=== PATIENT | male | born 1930 | race Two or more races ===

== ENCOUNTER 2018-07-24 18:21 | Inpatient (IN) | payer OTHER ==
[~2018-07-24] VITALS: Ht 175.3 cm; Wt 58.7 kg
--- NOTE | 2018-07-24 20:00 | NUR ---
Amy RN notes PT arrived at the unit with a courtneyringris. PT came from [facility]. PT is alert and oriented X3. PT only speaks Bulgarian. PT's daughter named Juany helped with the translation. According to his daughter, PT felt a week ago and brought him to [facility] today 07/24/18 to get checked. Respiration is equal and unlabored. NO SOB. No pain or discomfort at this time. PT's calm and cooperative. IV sites is on left AC# 20, intact, patent and flush without resistance. VS is stable. Pictures of the skin/wound have been taken. Wound consult is ordered. Safety precautions is maintained. Bed at low position and call light is within reach. Will continue to monitor.
[2018-07-24 20:20] VITALS: BP 106/64
[2018-07-24] MEDS ORDERED: MAG HYDROX/AL HYDROX/SIMETH 30 ML UDC PO PRN (23:30)
[2018-07-24] MEDS ORDERED: MAGNESIUM HYDROXIDE 30 ML UDC PO PRN (23:30)
[2018-07-24] MEDS ORDERED: Z GUARD REMEDY 2 OZ OINT TP PRN (23:30)
[2018-07-24] MEDS ORDERED: ZOLPIDEM TARTRATE 5 MG TABLET PO PRN (23:30)
[2018-07-24] MEDS ORDERED: ACETAMINOPHEN 325 MG TABLET PO PRN (23:30)
[2018-07-24] MEDS ORDERED: ONDANSETRON HCL/PF 4 MG/2 ML VIAL IVP PRN (23:30)
--- NOTE | 2018-07-25 00:20 | NUR ---
RN [facility] notes DR. Alexandre came to see the pt. PT is awake and alert. No complains of pain or any discomfort. Will continue to monitor.
[2018-07-25] MEDS ORDERED: ENOXAPARIN SODIUM 40 MG/0.4 ML DISP.SYRIN SQ SCH (01:15)
[2018-07-25 06:34] LABS: BASOPHILS % (AUTO) 0.4 % (0.0-2.0); EOSINOPHILS % (AUTO) 0.7 % (0.0-6.0); HEMATOCRIT 40 % (39-51); HEMOGLOBIN 13.6 g/dL (13.5-17.5); LYMPHOCYTES # (AUTO) 0.6 /CMM (0.8-4.8); LYMPHOCYTES % (AUTO) 11.8 % (20.0-44.0); MEAN CORPUSCULAR HGB CONC 34 g/dl (31.0-36.0); MEAN CORPUSCULAR VOLUME 95 fL (80-96); MONOCYTES # (AUTO) 0.4 /CMM (0.1-1.30); MONOCYTES % (AUTO) 8.1 % (2.0-12.0); NEUTROPHILS # (AUTO) 4.2 /CMM (1.8-8.9); PLATELET COUNT (AUTO) 283 /CMM (150-450); RED BLOOD CELL COUNT(AUTO) 4.22 MIL/uL (4.5-6.0); WHITE BLOOD COUNT (AUTO) 5.3 K/uL (4.3-11.0)
[2018-07-25 07:03] LABS: CHOLESTEROL 98 mg/dL (<200); HDL CHOLESTEROL 54 mg/dL (40-60); LDL 41 mg/dL (0-99); THYROID STIMULATING HORMONE 1.225 uIU/mL (0.358-3.74); TRIGLYCERIDES 36 mg/dL (30-150)
--- NOTE | 2018-07-25 07:05 | NUR ---
RN medsurg closing notes PT is resting in bed comfortably with eyes closed. PT is alert and oriented X3, Georgian speaking only. Respiration is equal and unlabored. NO SOB. No c/o pain. IV is intact, patent and flush without resistance. Routine meds have been given and assisted all needs. Skin care provided and Z-guard and mepilex is applied in the sacrum area. Safety precautions is maintained. Bed at low position and call light is within reach. Will endorse to morning nurse for NEVIN.
[2018-07-25 07:26] LABS: CALCIUM, SERUM 8.2 mg/dL (8.5-10.1); CARBON DIOXIDE 27 mmol/L (21-32); CHLORIDE 98 mmol/L (98-107); CREATININE 0.9 mg/dL (0.6-1.3); GLUCOSE 84 mg/dL (74-106); MAGNESIUM 2.3 mg/dL (1.8-2.4); PHOSPHORUS 3.5 mg/dL (2.5-4.9); POTASSIUM 4.4 mmol/L (3.5-5.1); SODIUM SERUM 132 mmol/L (136-145); UREA NITROGEN, BLOOD 11 mg/dL (7-18)
[2018-07-25] MEDS ORDERED: TAMS-12 PO (07:42)
[2018-07-25] MEDS ORDERED: FINA5TAB11 PO (07:42)
[2018-07-25] MEDS ORDERED: FOLI-65 PO (07:42)
[2018-07-25] MEDS ORDERED: AMIO200T4 PO (07:42)
[2018-07-25] MEDS ORDERED: ACET325T53 PO (07:44)
[2018-07-25 08:00] VITALS: BP 151/82
--- NOTE | 2018-07-25 08:00 | NUR ---
MS RN OPENING NOTES Received Patient comfortable and asleep in bed. A/O x 3, Lithuanian speaking. VS stable with no acute distress. Breathing even and unlabored on room air with no respiratory distress. NPO orders in place. 20g PIV on LAC clean, dry, intact and flushing well. Safety precautions in place. Bed locked and set to lowest position with side rails x 2 up. Will continue to monitor.
[2018-07-25] MEDS: MULTIVITAMINS,THERAGRAN 1 UDTAB TABLET PO SCH (09:53)
[2018-07-25] MEDS: AMIODARONE HCL 200 MG TABLET PO SCH ×2 (10:00→17:00)
[2018-07-25] MEDS ORDERED: BACITRACIN 50000 UNITS/VIAL ONE (14:50)
[2018-07-25] MEDS ORDERED: BUPIVACAINE 0.5 % PF 150 MG/30 ML VIAL ONE (14:50)
[2018-07-25] MEDS ORDERED: DESFLURANE 240 ML BOTTLE IH ONE (14:50)
[2018-07-25] MEDS ORDERED: SEVOFLURANE 250 ML BOTTLE IH ONE (14:50)
--- NOTE | 2018-07-25 15:58 | NUR ---
MS RN NOTES Daughter at bedside. Patient taken to OR at this time.
[2018-07-25 16:02] LABS: BASOPHILS % (AUTO) 0.5 % (0.0-2.0); EOSINOPHILS % (AUTO) 0.4 % (0.0-6.0); HEMATOCRIT 38 % (39-51); HEMOGLOBIN 13.3 g/dL (13.5-17.5); LYMPHOCYTES # (AUTO) 0.5 /CMM (0.8-4.8); LYMPHOCYTES % (AUTO) 10.1 % (20.0-44.0); MEAN CORPUSCULAR HGB CONC 35 g/dl (31.0-36.0); MEAN CORPUSCULAR VOLUME 94 fL (80-96); MONOCYTES # (AUTO) 0.4 /CMM (0.1-1.30); MONOCYTES % (AUTO) 7.2 % (2.0-12.0); NEUTROPHILS # (AUTO) 4.2 /CMM (1.8-8.9); NEUTROPHILS % (AUTO) 81.8 % (43.0-81.0); PLATELET COUNT (AUTO) 292 /CMM (150-450); RED BLOOD CELL COUNT(AUTO) 4.07 MIL/uL (4.5-6.0); WHITE BLOOD COUNT (AUTO) 5.2 K/uL (4.3-11.0)
[2018-07-25] MEDS ORDERED: NITROGLYCERIN 0.4 MG/TAB BOTTLE ONE (16:51)
[2018-07-25] MEDS ORDERED: TRANEXAMIC ACID 1,000 MG in SODIUM CHLORIDE IRRIG SOLUTION 90 ML IR ONE (17:00)
--- NOTE | 2018-07-25 18:17 | NUR ---
MS RN NOTES Received Patient resting in bed. A/O x 3, Jamaican speaking. VS stable with no acute distress. Breathing even and unlabored on 2LPM via NC. Perez Cath in place and operational with clear yellow urine output noted. 20g PIV on LAC clean, dry, intact and flushing well. Will continue to monitor.
--- NOTE | 2018-07-25 19:00 | NUR ---
RN medsurg opening notes Received PT from morning nurse. PT just came back from right hip surgery at 1800 pm. PT is alert and oriented X3. PT only speaks Slovak. His Daughter Juany at the bed side with him and help with the translation. No pain or any discomfort at this time. IV is intact and patent. Dressing at surgery site is intact and dry. Bed at low position and call light is within reach. Keep monitoring the VS. Last VS at 1830 was 106/58 and pulse 68. Will continue to monitor.
--- NOTE | 2018-07-25 19:04 | NUR ---
MS RN CLOSING NOTES Patient resting in bed with daughter at bedside. A/O x 3, Salvadorean speaking. VS stable with no acute distress. Breathing even and unlabored on 2LPM via NC with no respiratory distress. 20g PIV on LAC clean, dry, intact and flushing well. Perez Cath in place and operational with clear yellow urine noted. RIGHT HIP dressing clean, dry, and intact. Safety precautions in place. Bed locked and set to lowest position with side rails x 2 up. Will endorse plan of care to oncoming shift.
[2018-07-25 20:00] VITALS: BP 101/57
--- NOTE | 2018-07-25 20:00 | NUR ---
RN medsurg notes PT is complaining of pain on right hip 3/10 on pain scale. Administered PRN med Acetaminophen 650mg. VS is stable. Will continue to monitor.
--- NOTE | 2018-07-25 20:00 | NUR ---
RN medsur notes PT is resting in bed comfortably with eyes closed. No c/o pain or discomfort. His daughter Juany at the bed side. BP 101/57, Pulse 62, Respiration is 20, Temp 97.3 F, O2 sat 97% on 3 L NC. Will continue to monitor.
--- NOTE | 2018-07-25 21:17 | NUR ---
Met with patient and daughter Juany at bedside. Patient speaks Icelandic only. He lives at home with family in [facility]. Prior to hospitalization he was ambulating with a walker. Has big family that provides assistance with adl's as needed. Patient receives 78hrs/month of IHSS. He had surgery right hip hemiarthroplasty done today. His pcp is Dr. Derrick Boles in [place]. Discussed dc planning options including SNF short term. Daughter does not want SNF placement. Family prefer to take patient home with homehealth PT when discharge. Addendum: 07/25/18 at 2121 by AURELIANO PERALES RN Amended: Links added.
--- NOTE | 2018-07-25 21:21 | NUR ---
Met with patient and daughter Juany at bedside. Patient speaks [place] Citizen only. He lives at home with family in [facility]. Prior to hospitalization he was ambulating with a walker. Has big family that provides assistance with adl's as needed. Patient receives 78hrs/month of IHSS. He owns a wheelchair, walker and shower chair.His pcp is Dr. Derrick Boles in [place]. Had surgery right hip hemiarthroplasty done today.Discussed dc planning options including SNF short term. Daughter does not want SNF placement. Family prefer to take patient home with homehealth PT when discharge. Addendum: 07/25/18 at 2121 by AURELIANO PERALES RN Amended: Links added.
--- NOTE | 2018-07-25 22:00 | NUR ---
RN medsurg notes PT's BP 123/54, Pulse 69, Respiration is 18. No pain or any discomfort. Pt's daughter at the bed side. Will continue to monitor.
[2018-07-25] MEDS: TAMSULOSIN 0.4 MG CAP.SR.24H PO SCH (22:10)
[2018-07-25] MEDS: FINASTERIDE (5 MG) 5 MG TABLET PO SCH (22:10)
[2018-07-25] MEDS: ANCEF 1 GM/50 ML D5W IV SCH ×2 (23:05)
--- NOTE | 2018-07-25 23:59 | NUR ---
RN medsurg notes PT is resting in bed comfortably. Arouse easily. PT's daughter at the bed side. No C/O pain. No nausea or vomiting. BP 100/59, Pulse 70, O2 sat 95% on room air, Respiration is 18, Temp 98.9 F. Will continue to monitor.
--- NOTE | 2018-07-26 06:30 | NUR ---
RN medsurg closing notes PT is resting in bed comfortably with eyes closed. PT is alert and oriented X3, Puerto Rican speaking only. Respiration is equal and unlabored. NO SOB. No c/o pain or any discomfort. IV is intact, patent and flush without resistance. Routine meds have been given and assisted all needs. Safety precautions is maintained. Bed at low position and call light is within reach. Will endorse to morning nurse for NEVIN.
[2018-07-26 06:47] LABS: BASOPHILS % (AUTO) 0.1 % (0.0-2.0); EOSINOPHILS % (AUTO) 0.1 % (0.0-6.0); HEMATOCRIT 33 % (39-51); HEMOGLOBIN 11.8 g/dL (13.5-17.5); LYMPHOCYTES # (AUTO) 0.4 /CMM (0.8-4.8); LYMPHOCYTES % (AUTO) 4.5 % (20.0-44.0); MEAN CORPUSCULAR HGB CONC 36 g/dl (31.0-36.0); MEAN CORPUSCULAR VOLUME 94 fL (80-96); MONOCYTES # (AUTO) 0.5 /CMM (0.1-1.30); MONOCYTES % (AUTO) 5.9 % (2.0-12.0); NEUTROPHILS # (AUTO) 7.9 /CMM (1.8-8.9); NEUTROPHILS % (AUTO) 89.4 % (43.0-81.0); PLATELET COUNT (AUTO) 248 /CMM (150-450); RED BLOOD CELL COUNT(AUTO) 3.52 MIL/uL (4.5-6.0); WHITE BLOOD COUNT (AUTO) 8.8 K/uL (4.3-11.0)
--- NOTE | 2018-07-26 07:00 | NUR ---
RN medsurg closing notes
[2018-07-26 07:08] LABS: CALCIUM, SERUM 7.5 mg/dL (8.5-10.1); CARBON DIOXIDE 24 mmol/L (21-32); CHLORIDE 101 mmol/L (98-107); CREATININE 0.9 mg/dL (0.6-1.3); GLUCOSE 93 mg/dL (74-106); SODIUM SERUM 134 mmol/L (136-145); UREA NITROGEN, BLOOD 15 mg/dL (7-18)
--- NOTE | 2018-07-26 07:39 | NUR ---
MS/RN OPENING NOTE PATIENT IN BED IN STABLE CONDITION. A/O X 2-3 WITH EPISODES OF FORGETFULNESS, MALAGASY SPEAKING. NO SIGNS OF ACUTE DISTRESS. NO COMPLAIN OF PAIN OR DISCOMFORT. ALL NEEDS ATTENDED TO. CALL LIGHT WITHIN REACH. WILL CONTINUE TO MONITOR TO ENSURE SAFETY.
[2018-07-26 08:00] VITALS: BP 119/67
[2018-07-26] MEDS: ANCEF 1 GM/50 ML D5W IV SCH ×4 (08:22→15:16)
[2018-07-26] MEDS: MULTIVITAMINS,THERAGRAN 1 UDTAB TABLET PO SCH (08:22)
[2018-07-26] MEDS: AMIODARONE HCL 200 MG TABLET PO SCH ×2 (08:22→16:39)
[2018-07-26] MEDS: HYDROCODONE/APAP 5/325MG 1 EACH TABLET PO PRN ×2 (09:40→21:34)
--- NOTE | 2018-07-26 11:41 | NUR ---
WOUND CARE CONSULT: PT PRESENTS WITH RT HIP SURGICAL DRESSING, ORTHO IMMOBILIZER ON RT LOWER EXTREMITY, DRY SCAB TO RT ELBOW AND VERY BONY SACRAL AREA, PRESENT ON ADMISSION. JOSE DANIEL IBRAHIM NOTED. RECOMMENDATIONS MADE FOR SKIN PROTECTION. DISCUSSED WITH NURSING STAFF. WILL SEE PRN. ARAUJO IN AGREEMENT WITH PLAN OF CARE. CURRENT BONG SCORE IS 14. Addendum: 07/26/18 at 1143 by ANNY VELASQUEZ WNDNU Amended: Links added.
[2018-07-26 16:00] VITALS: BP 116/70
--- NOTE | 2018-07-26 18:26 | NUR ---
MS/RN CLOSING NOTE PATIENT IN BED IN STABLE CONDITION. A/O X 2 WITH EPISODES OF FORGETFULNESS, TELUGU SPEAKING. NO SIGNS OF ACUTE DISTRESS. NO COMPLAIN OF PAIN OR DISCOMFORT. ALL NEEDS ATTENDED TO. CALL LIGHT WITHIN REACH. WILL ENDORSE TO NEXT SHIFT FOR CONTINUITY OF CARE.
--- NOTE | 2018-07-26 19:15 | NUR ---
RN OPEN NOTES RECEIVED PATIENT AWAKE IN BED. A/O X2, WITH PERIODS CONFUSION AND FORGETFULNESS. NO SIGNS OF DISTRESS OR DISCOMFORT. BREATHING EVEN AND UNLABORED. IV ACCESS IN LAC, PATENT AND INTACT, NO SIGNS OF REDNESS OR INFILTRATION. DRESSING ON R HIP C/D/I. KNEE IMMOBILIZER AND ABDUCTION PILLOW IN PLACE. HAS F/C INTACT DRAINING CLEAR CRISTIN FLUID. BED IN LOW LOCKED POSITION WITH SIDE RAILS X3. CALL LIGHT WITHIN REACH. WILL CONTINUE TO MONITOR.
[2018-07-26 20:00] VITALS: BP 126/62
[2018-07-26] MEDS: FINASTERIDE (5 MG) 5 MG TABLET PO SCH (21:33)
[2018-07-26] MEDS: TAMSULOSIN 0.4 MG CAP.SR.24H PO SCH (21:33)
[2018-07-26] MEDS: ENOXAPARIN SODIUM 40 MG/0.4 ML DISP.SYRIN SQ SCH (21:35)
[2018-07-27 06:13] LABS: BASOPHILS % (AUTO) 0.1 % (0.0-2.0); EOSINOPHILS % (AUTO) 0.1 % (0.0-6.0); HEMATOCRIT 32 % (39-51); HEMOGLOBIN 11.2 g/dL (13.5-17.5); LYMPHOCYTES # (AUTO) 0.6 /CMM (0.8-4.8); LYMPHOCYTES % (AUTO) 6.4 % (20.0-44.0); MEAN CORPUSCULAR HGB CONC 35 g/dl (31.0-36.0); MEAN CORPUSCULAR VOLUME 95 fL (80-96); MONOCYTES # (AUTO) 0.6 /CMM (0.1-1.30); MONOCYTES % (AUTO) 6.3 % (2.0-12.0); NEUTROPHILS % (AUTO) 87.1 % (43.0-81.0); PLATELET COUNT (AUTO) 203 /CMM (150-450); RED BLOOD CELL COUNT(AUTO) 3.37 MIL/uL (4.5-6.0); WHITE BLOOD COUNT (AUTO) 9.2 K/uL (4.3-11.0)
[2018-07-27 06:27] LABS: CALCIUM, SERUM 7.8 mg/dL (8.5-10.1); CARBON DIOXIDE 26 mmol/L (21-32); CHLORIDE 101 mmol/L (98-107); CREATININE 0.8 mg/dL (0.6-1.3); GLUCOSE 108 mg/dL (74-106); MAGNESIUM 2.1 mg/dL (1.8-2.4); PHOSPHORUS 2.7 mg/dL (2.5-4.9); POTASSIUM 3.9 mmol/L (3.5-5.1); SODIUM SERUM 134 mmol/L (136-145); UREA NITROGEN, BLOOD 15 mg/dL (7-18)
--- NOTE | 2018-07-27 06:40 | NUR ---
RN CLOSING NOTES PATIENT RESTING IN BED, EASILY AROUSABLE. A/O X2, WITH PERIODS CONFUSION AND FORGETFULNESS THROUGHOUT SHIFT. NO SIGNS OF DISTRESS OR DISCOMFORT. BREATHING EVEN AND UNLABORED. IV ACCESS IN LAC, PATENT AND INTACT, NO SIGNS OF REDNESS OR INFILTRATION. DRESSING ON R HIP C/D/I. KNEE IMMOBILIZER AND ABDUCTION PILLOW IN PLACE. HAS F/C INTACT DRAINING CLEAR CRISTIN FLUID. ALL NEEDS MET. NO SIGNIFCANT CHANGES THROUGH THE NIGHT. PATIENT REPOSITIONED Q2H AND PRN. BED IN LOW LOCKED POSITION WITH SIDE RAILS X3. CALL LIGHT WITHIN REACH. WILL ENDORSE TO AM SHIFT FOR NEVIN.
--- NOTE | 2018-07-27 07:15 | NUR ---
MS RN Opening Note Patient currently resting in bed Semi-Fowlers position, no acute distress noted. Easily arousable. Alert and oriented x2, Malaysian speaking. Respirations even and unlabored on room air. Perez catheter in place, patent, intact and draining clear, brad urine. Dressing noted to the right hip, clean, dry and intact. Immobilzer in place to right leg; abduction pillow in place. Peripheral IV access to the left AC 20 gauge, intact, patent and saline locked. Safety and fall precautions in place: bed in lowest and locked position, side rails up x2, bed alarm on, call light and personal possessions in reach, room well lit, floor clutter-free. Patient currently clean, dry and comfortable. Will continue to monitor and intervene as needed.
[2018-07-27 08:00] VITALS: BP 157/83
[2018-07-27] MEDS: AMIODARONE HCL 200 MG TABLET PO SCH ×2 (08:54→17:12)
[2018-07-27] MEDS: MULTIVITAMINS,THERAGRAN 1 UDTAB TABLET PO SCH (08:54)
[2018-07-27] MEDS: HYDROCODONE/APAP 5/325MG 1 EACH TABLET PO PRN ×2 (10:29→22:53)
--- NOTE | 2018-07-27 11:30 | NUR ---
MS RN NOTES PT SEEN BY Andrea DARNELL A. DRESSING CHANGE DONE TODAY. PT TOLERATED WELL. NO signs or symptoms OF INFECTION present. Medication given as needed for pain. Repositioned per protocol and as tolerated. WILL CONTINUE TO MONITOR.
[2018-07-27 16:00] VITALS: BP 144/71
--- NOTE | 2018-07-27 18:30 | NUR ---
MS RN Closing Note Patient currently resting in bed Semi-Fowlers position, no acute distress noted. Easily arousable. Alert and oriented x2, Cuban speaking. Respirations even and unlabored on room air. Perez catheter in place, patent, intact and draining clear, brad urine. Dressing noted to the right hip, clean, dry and intact. Immobilizer in place to right leg; abduction pillow in place. Peripheral IV access to the left AC 20 gauge, intact, patent and saline locked. Safety and fall precautions in place: bed in lowest and locked position, side rails up x2, bed alarm on, call light and personal possessions in reach, room well lit, floor clutter-free. Patient currently clean, dry and comfortable. Gave update to daughter via telephone, Juany this shift. All needs attended to. Will endorse to steward/stewardess night RN for continuity of care.
--- NOTE | 2018-07-27 19:35 | NUR ---
RN NOTES RECEIVED PATIENT AWAKE IN BED, CONFUSE, CAMBODIAN SPEAKING,SPEAKING IN A LOUD MANNER. ON SEMI FOWLERS POSITION, BREATHING EVEN AND UNLABORED, SAFETY MEASURES IN PLACE, ASPIRATION PRECAUTION EMPHASIZED, BED IN LOW LOCKED POSITION, CALL LIGHT WITHIN EASY REACH, IV ACCESS INTACT AND PATENT, ALL NEEDS, KSY CATH DRAINING TO A YELLOW TO CRISTIN IN COLOR, REPOSITIONED FOR COMFORT, WILL MONITOR ACCORDINGLY.
[2018-07-27 20:00] VITALS: BP 133/81
[2018-07-27] MEDS: TAMSULOSIN 0.4 MG CAP.SR.24H PO SCH (21:31)
[2018-07-27] MEDS: FINASTERIDE (5 MG) 5 MG TABLET PO SCH (21:31)
[2018-07-27] MEDS: ENOXAPARIN SODIUM 40 MG/0.4 ML DISP.SYRIN SQ SCH (21:32)
[2018-07-28 06:22] LABS: BASOPHILS % (AUTO) 0.2 % (0.0-2.0); EOSINOPHILS % (AUTO) 0.5 % (0.0-6.0); HEMATOCRIT 29 % (39-51); HEMOGLOBIN 10.3 g/dL (13.5-17.5); LYMPHOCYTES # (AUTO) 0.6 /CMM (0.8-4.8); LYMPHOCYTES % (AUTO) 8.8 % (20.0-44.0); MEAN CORPUSCULAR HGB CONC 35 g/dl (31.0-36.0); MEAN CORPUSCULAR VOLUME 95 fL (80-96); MONOCYTES # (AUTO) 0.4 /CMM (0.1-1.30); MONOCYTES % (AUTO) 6.1 % (2.0-12.0); NEUTROPHILS # (AUTO) 5.5 /CMM (1.8-8.9); NEUTROPHILS % (AUTO) 84.4 % (43.0-81.0); PLATELET COUNT (AUTO) 180 /CMM (150-450); RED BLOOD CELL COUNT(AUTO) 3.11 MIL/uL (4.5-6.0); WHITE BLOOD COUNT (AUTO) 6.5 K/uL (4.3-11.0)
[2018-07-28 06:29] LABS: CALCIUM, SERUM 7.4 mg/dL (8.5-10.1); CARBON DIOXIDE 28 mmol/L (21-32); CHLORIDE 101 mmol/L (98-107); CREATININE 0.7 mg/dL (0.6-1.3); GLUCOSE 93 mg/dL (74-106); POTASSIUM 3.5 mmol/L (3.5-5.1); SODIUM SERUM 134 mmol/L (136-145); UREA NITROGEN, BLOOD 12 mg/dL (7-18)
--- NOTE | 2018-07-28 07:24 | NUR ---
RN NOTES PATIENT AWAKE IN BED, ABLE TO REST AND SLEEP AT INTERVALS, BREATHING EVEN AND UNLABORED, SAFETY MEASURES IN PLACE, ASPIRATION PRECAUTION EMPHASIZED, BED IN LOW LOCKED POSITION, CALL LIGHT WITHIN EASY REACH, IV ACCESS INTACT AND PATENT, ALL NEEDS, SKY CATH DRAINING TO A YELLOW TO CRISTIN IN COLOR, REPOSITIONED FOR COMFORT, WILL ENDORSE TO AM NURSE FOR CONTINUITY OF CARE.
--- NOTE | 2018-07-28 07:45 | NUR ---
M/S RN NOTES PATIENT AWAKE IN BED, ALERT AND ORIENTED X2, LUXEMBOURGISH SPEAKING. PATIENT IN NO RESPIRATORY DISTRESS, DENIES ANY PAIN AT THIS TIME. SKIN WARM TO TOUCH. IV SL ON THE LAC #20G, INTACT AND PATENT. BED ON LOWEST LOCKED POSITION, CALL LIGHT WITHIN REACH. WILL CONTINUE TO MONITOR.
[2018-07-28 08:00] VITALS: BP 121/68
[2018-07-28] MEDS: MULTIVITAMINS,THERAGRAN 1 UDTAB TABLET PO SCH (08:19)
[2018-07-28] MEDS: AMIODARONE HCL 200 MG TABLET PO SCH ×2 (08:20→17:14)
[2018-07-28] MEDS: HYDROCODONE/APAP 5/325MG 1 EACH TABLET PO PRN ×2 (10:40→17:14)
[2018-07-28 16:00] VITALS: BP 118/65
--- NOTE | 2018-07-28 17:58 | NUR ---
M/S RN NOTES PATIENT LYING IN BED RESTING, NO RESPIRATORY DISTRESS NOTED, DENIES PAIN AT THIS TIME. SKIN WARM TO TOUCH, KNEE IMMOBILIZER IN PLACE AND ABDUCTION PILLOW IN BETWEEN LEGS. BED ON LOWEST LOCKED POSITION, CALL LIGHT WITHIN REACH. WILL ENDORSE TO ONCOMING NURSE.
--- NOTE | 2018-07-28 19:45 | NUR ---
RN NOTES RECEIVED PATIENT AWAKE IN BED, CONFUSE, PITCAIRN ISLANDER SPEAKING,SPEAKING IN A LOUD MANNER. ON SEMI FOWLERS POSITION, BREATHING EVEN AND UNLABORED, SAFETY MEASURES IN PLACE, ASPIRATION PRECAUTION EMPHASIZED, BED IN LOW LOCKED POSITION, CALL LIGHT WITHIN EASY REACH, IV ACCESS INTACT AND PATENT, ALL NEEDS, SKY CATH DRAINING TO A YELLOW TO CRISTIN IN COLOR, REPOSITIONED FOR COMFORT, WILL MONITOR ACCORDINGLY.
[2018-07-28 20:00] VITALS: BP_SYST 135; BP_SYST 136; BP_DIAS 66
[2018-07-28] MEDS: TAMSULOSIN 0.4 MG CAP.SR.24H PO SCH (21:25)
[2018-07-28] MEDS: FINASTERIDE (5 MG) 5 MG TABLET PO SCH (21:25)
[2018-07-28] MEDS: ENOXAPARIN SODIUM 40 MG/0.4 ML DISP.SYRIN SQ SCH (21:27)
[2018-07-29] MEDS: HYDROCODONE/APAP 5/325MG 1 EACH TABLET PO PRN ×2 (01:11→20:50)
[2018-07-29 06:34] LABS: BASOPHILS % (AUTO) 0.2 % (0.0-2.0); EOSINOPHILS % (AUTO) 0.8 % (0.0-6.0); HEMATOCRIT 28 % (39-51); HEMOGLOBIN 9.7 g/dL (13.5-17.5); LYMPHOCYTES # (AUTO) 0.6 /CMM (0.8-4.8); LYMPHOCYTES % (AUTO) 10.9 % (20.0-44.0); MEAN CORPUSCULAR HGB CONC 34 g/dl (31.0-36.0); MEAN CORPUSCULAR VOLUME 96 fL (80-96); MONOCYTES # (AUTO) 0.3 /CMM (0.1-1.30); MONOCYTES % (AUTO) 5.9 % (2.0-12.0); NEUTROPHILS # (AUTO) 4.3 /CMM (1.8-8.9); NEUTROPHILS % (AUTO) 82.2 % (43.0-81.0); PLATELET COUNT (AUTO) 176 /CMM (150-450); RED BLOOD CELL COUNT(AUTO) 2.95 MIL/uL (4.5-6.0); WHITE BLOOD COUNT (AUTO) 5.2 K/uL (4.3-11.0)
[2018-07-29 06:52] LABS: CALCIUM, SERUM 7.4 mg/dL (8.5-10.1); CARBON DIOXIDE 29 mmol/L (21-32); CHLORIDE 101 mmol/L (98-107); CREATININE 0.7 mg/dL (0.6-1.3); GLUCOSE 124 mg/dL (74-106); MAGNESIUM 1.9 mg/dL (1.8-2.4); PHOSPHORUS 2.8 mg/dL (2.5-4.9); POTASSIUM 3.5 mmol/L (3.5-5.1); SODIUM SERUM 135 mmol/L (136-145); UREA NITROGEN, BLOOD 13 mg/dL (7-18)
--- NOTE | 2018-07-29 07:30 | NUR ---
RN NOTES ALL NEEDS ATTENDED, ABLE TO REST AND SLEEP AT INTERVALS, KEPT CLEAN DRY AND COMFORTABLE. ENDORSE TO AM NURSE FOR CONTINUITY OF CARE.
[2018-07-29 08:00] VITALS: BP 115/60
--- NOTE | 2018-07-29 08:00 | NUR ---
m/s network diagnostic support specialist: initial assessment received pt in bed awake, alert to self only with confusion and disorientation to time, place, and situation. s/p right hip hemiarthroplasty. dressing to right hip intact. voiced no discomfort. reality orientation provided prn. will continue to monitor.
[2018-07-29] MEDS: MULTIVITAMINS,THERAGRAN 1 UDTAB TABLET PO SCH (08:26)
[2018-07-29] MEDS: AMIODARONE HCL 200 MG TABLET PO SCH ×2 (08:26→16:54)
--- NOTE | 2018-07-29 10:00 | NUR ---
m/s quarter doper: ortho f/u analisa martin) here and cleared pt for discharge under orthopedic standpoint. awaiting placement.
--- NOTE | 2018-07-29 12:00 | NUR ---
m/s nurse gynecology: notes turned and repositioned. kept comfortable. no distress noted. lunch served. hob elevated.
--- NOTE | 2018-07-29 14:00 | NUR ---
m/s patient access associate: notes turned and repositioned. abduction pillow remains in place. dressing to right hip intact. no bleeding noted. voiced no discomfort. will continue to monitor.
[2018-07-29 16:00] VITALS: BP 128/72
--- NOTE | 2018-07-29 16:00 | NUR ---
m/s medical nurse: notes turned and repositioned. kept comfortable. abduction pillow in place. hip precaution maintained. will continue to monitor.
--- NOTE | 2018-07-29 18:00 | NUR ---
m/s telecommunications specialist: notes family visiting at this time. pt resting comfortable in bed. will monitor.
--- NOTE | 2018-07-29 18:45 | NUR ---
m/s occupational health physician: notes in bed awake with family at bedside. needs attended. no distress noted. will continue to monitor.
--- NOTE | 2018-07-29 19:30 | NUR ---
RECEIVED PATIENT AWAKE IN BED. AO X 1, ABLE TO MAKE NEEDS KNOWN. NO ACUTE DISTRESS NOTED. DENIES ANY PAIN AT THIS TIME. IV SITE PATENT, INTACT; FLUSHED. SKY CATH PATENT, INTACT; DRAINING CLEAR YELLOW URINE. SAFETY REMINDERS GIVEN. ON LOW BED WITH BILATERAL UPPER SIDE RAILS UP. CALL HURT WITHIN EASY REACH. WILL CONTINUE TO MONITOR. FAMILY AT BEDSIDE.
[2018-07-29 20:00] VITALS: BP 107/63
[2018-07-29] MEDS: ENOXAPARIN SODIUM 40 MG/0.4 ML DISP.SYRIN SQ SCH (20:50)
[2018-07-29] MEDS: TAMSULOSIN 0.4 MG CAP.SR.24H PO SCH (21:01)
[2018-07-29] MEDS: FINASTERIDE (5 MG) 5 MG TABLET PO SCH (21:01)
--- NOTE | 2018-07-30 06:12 | NUR ---
PATIENT ASLEEP, EASILY AROUSABLE. RESPIRATIONS EVEN. NO SIGNS OF PAIN NOTED. DUE MEDS GIVEN WITH NO ASE NOTED. ABDUCTOR PILLOW IN PLACE. NEEDS ATTENDED. KEPT CLEAN AND DRY. SAFETY PRECAUTIONS AND COMFORT MEASURES IN PLACE. WILL GIVE REPORT TO DAY SHIFT FOR CONTINUITY OF CARE.
[2018-07-30 07:20] LABS: BASOPHILS % (AUTO) 0.3 % (0.0-2.0); EOSINOPHILS % (AUTO) 0.9 % (0.0-6.0); HEMATOCRIT 29 % (39-51); HEMOGLOBIN 10.2 g/dL (13.5-17.5); LYMPHOCYTES # (AUTO) 0.6 /CMM (0.8-4.8); LYMPHOCYTES % (AUTO) 10.4 % (20.0-44.0); MEAN CORPUSCULAR HGB CONC 35 g/dl (31.0-36.0); MEAN CORPUSCULAR VOLUME 94 fL (80-96); MONOCYTES # (AUTO) 0.3 /CMM (0.1-1.30); MONOCYTES % (AUTO) 5.6 % (2.0-12.0); NEUTROPHILS # (AUTO) 4.5 /CMM (1.8-8.9); NEUTROPHILS % (AUTO) 82.8 % (43.0-81.0); PLATELET COUNT (AUTO) 204 /CMM (150-450); RED BLOOD CELL COUNT(AUTO) 3.08 MIL/uL (4.5-6.0); WHITE BLOOD COUNT (AUTO) 5.5 K/uL (4.3-11.0)
[2018-07-30 07:23] LABS: CALCIUM, SERUM 8.1 mg/dL (8.5-10.1); CARBON DIOXIDE 27 mmol/L (21-32); CHLORIDE 99 mmol/L (98-107); CREATININE 0.7 mg/dL (0.6-1.3); GLUCOSE 111 mg/dL (74-106); POTASSIUM 3.8 mmol/L (3.5-5.1); SODIUM SERUM 135 mmol/L (136-145); UREA NITROGEN, BLOOD 11 mg/dL (7-18)
[2018-07-30 08:00] VITALS: BP 123/68
--- NOTE | 2018-07-30 08:00 | NUR ---
m/s last puller: initial assessment received pt in bed awake, alert to self only with confusion and disorientation to time, place, and situation. s/p right hip hemiarthroplasty. jatinder intact with dressing to right hip intact. voiced no discomfort. reality orientation provided prn. will continue to monitor.
[2018-07-30] MEDS: MULTIVITAMINS,THERAGRAN 1 UDTAB TABLET PO SCH (08:51)
[2018-07-30] MEDS: AMIODARONE HCL 200 MG TABLET PO SCH ×2 (08:55→17:31)
--- NOTE | 2018-07-30 09:00 | NUR ---
m/s lookback coordinator: md visit seen by shelby (acnp) at this time. still awaiting for placement.
--- NOTE | 2018-07-30 09:15 | NUR ---
m/s manager strategic alliances: notes valentine (daughter) visiting and wants to be called re: placement close to [facility]. message left to curt (case management).
--- NOTE | 2018-07-30 10:00 | NUR ---
m/s personnel arbitrator: notes curt (case management) to f/u with family re: placement as stated. will continue to monitor.
--- NOTE | 2018-07-30 11:00 | NUR ---
m/s fig caprifier: notes rn instructor completed med surg flow sheet assessment.
--- NOTE | 2018-07-30 12:00 | NUR ---
m/s sailing instructor: notes resting comfortable with no distress noted. will continue to monitor.
--- NOTE | 2018-07-30 14:00 | NUR ---
m/s architect naval: notes turned and repositioned. abduction pillow remains in place. dressing to right hip intact. no bleeding noted. voiced no discomfort. will continue to monitor.
[2018-07-30 16:00] VITALS: BP 142/71
--- NOTE | 2018-07-30 16:00 | NUR ---
m/s data collection associate: notes turned and repositioned. abduction pillow remains in place. dressing to right hip intact. no bleeding noted. voiced no discomfort. will continue to monitor. for d'c planning to snf, awaiting authorization from insurance per case management. family already agreed for snf.
--- NOTE | 2018-07-30 18:55 | NUR ---
m/s machine whitener: notes resting comfortable in bed with no distress noted. pt remains alert to self only. reality orientation provided prn. no distress noted. will continue to monitor.
--- NOTE | 2018-07-30 19:40 | NUR ---
MS/RN RECEIVE PATIENT ON BED APPEAR SLEEPING, APPEAR COMFORTABLE, NO SIGNS OF DISTRESS NOTED, CALL LIGHT IN REACH. FALL PRECAUTION. WILL MONITOR.
[2018-07-30 21:29] VITALS: BP 122/63
[2018-07-30] MEDS: TAMSULOSIN 0.4 MG CAP.SR.24H PO SCH (22:06)
[2018-07-30] MEDS: FINASTERIDE (5 MG) 5 MG TABLET PO SCH (22:06)
[2018-07-30] MEDS: ENOXAPARIN SODIUM 40 MG/0.4 ML DISP.SYRIN SQ SCH (22:10)
--- NOTE | 2018-07-31 02:12 | NUR ---
MS/RN PATIENT IS SLEEPING AT THIS TIME, AROUSABLE, APPEAR COMFORTABLE, NO DISTRESS NOTED, CALL LIGHT IN REACH. WILL CONTINUE TO MONITOR.
--- NOTE | 2018-07-31 06:10 | NUR ---
MS/RN PATIENT IS STILL SLEEPING, AROUSABLE, APPEAR COMFORTABLE, NO SIGNS OF DISTRESS NOTED, CALL LIGHT IN REACH. ALL NEEDS ATTENDED AT THIS TIME, WILL CONTINUE TO MONITOR.
[2018-07-31 07:09] LABS: CARBON DIOXIDE 29 mmol/L (21-32); CHLORIDE 97 mmol/L (98-107); POTASSIUM 3.6 mmol/L (3.5-5.1); SODIUM SERUM 132 mmol/L (136-145)
[2018-07-31 07:10] LABS: CALCIUM, SERUM 7.9 mg/dL (8.5-10.1); CREATININE 0.7 mg/dL (0.6-1.3); GLUCOSE 89 mg/dL (74-106); UREA NITROGEN, BLOOD 11 mg/dL (7-18)
[2018-07-31 07:13] LABS: HEMATOCRIT 33 % (39-51); HEMOGLOBIN 11.4 g/dL (13.5-17.5); LYMPHOCYTES % (AUTO) 9.9 % (20.0-44.0); MEAN CORPUSCULAR HGB CONC 35 g/dl (31.0-36.0); MEAN CORPUSCULAR VOLUME 95 fL (80-96); MONOCYTES % (AUTO) 5.6 % (2.0-12.0); NEUTROPHILS % (AUTO) 83.4 % (43.0-81.0); PLATELET COUNT (AUTO) 220 /CMM (150-450); RED BLOOD CELL COUNT(AUTO) 3.45 MIL/uL (4.5-6.0); WHITE BLOOD COUNT (AUTO) 5.5 K/uL (4.3-11.0)
[2018-07-31 07:14] LABS: BASOPHILS % (AUTO) 0.2 % (0.0-2.0); EOSINOPHILS % (AUTO) 0.9 % (0.0-6.0); LYMPHOCYTES # (AUTO) 0.5 /CMM (0.8-4.8); MONOCYTES # (AUTO) 0.3 /CMM (0.1-1.30); NEUTROPHILS # (AUTO) 4.6 /CMM (1.8-8.9)
--- NOTE | 2018-07-31 07:30 | NUR ---
RN MS NOTES PT IN BED, AWAKE, ALERT AND ORIENTED, DENIES PAIN, NOT IN DISTRESS, CALL LIGHT WITHIN REACH, KEPT CLEAN AND COMFORTABLE, NEEDS ATTENDED.
[2018-07-31] MEDS ORDERED: ENOX40DI SQ (07:53)
[2018-07-31 08:00] VITALS: BP 143/74
[2018-07-31 09:02] VITALS: BP 143/74
[2018-07-31] MEDS: MULTIVITAMINS,THERAGRAN 1 UDTAB TABLET PO SCH (09:02)
[2018-07-31] MEDS: AMIODARONE HCL 200 MG TABLET PO SCH (09:02)
--- NOTE | 2018-07-31 12:35 | NUR ---
RN MS NOTES PT IN BED, AWAKE, ALERT AND ORIENTED, NO COMPLAINT OF PAIN, RESPIRATIONS NORMAL, SEEN BY KIMBERLI APPLICATIONS CHEMIST, PLAN OF CARE DISCUSSED WITH PT, DISCHARGE ORDER GIVEN, DISCHARGE AND MEDICATION INSTRUCTIONS PROVIDED TO PT AND DAUGHTER AUDREY AT BEDSIDE, VERBALIZED UNDERSTANDING, SKIN CHECK DONE, BELONGINGS ACCOUNTED FOR, CALL LIGHT WITHIN REACH, KEPT CLEAN AND DRY.
--- NOTE | 2018-07-31 15:55 | NUR ---
RN MS NOTES PT AWAKE, ALERT AND ORIENTED, NO COMPLAINT OF PAIN, NOT IN DISTRESS, MEDICATION AND DISCHARGE INSTRUCTIONS DISCUSSED WITH PT'S DAUGHTER AUDREY, VERBALIZED UNDERSTANDING, PT HAS NO BELONGINGS, REPORT GIVEN TO EDGARDO EM OF [facility], PICKED UP BY 2 AMBULANCE PERSONNEL, LEFT VIA GUERNEY IN STABLE CONDITION.
== END 2018-07-31 15:59 | DRG 301 ==
LOC: MED 19:39
PROVIDERS: ATTEND Nurse Practitioner Acute Care
PROC: 0SRR0JZ Replacement of Right Hip Joint, Femoral Surface with Synthetic Substitute, Open Approach (ICD-10-PCS; principal; 2018-07-25)
DX: S72.011A Unspecified intracapsular fracture of right femur, initial encounter for closed fracture (principal); I48.91 Unspecified atrial fibrillation; E87.1 Hypo-osmolality and hyponatremia; D64.9 Anemia, unspecified; F03.90 Unspecified dementia, unspecified severity, without behavioral disturbance, psychotic disturbance, mood disturbance, and anxiety; E78.5 Hyperlipidemia, unspecified; I10 Essential (primary) hypertension; Z86.73 Personal history of transient ischemic attack (TIA), and cerebral infarction without residual deficits; W18.30XA Fall on same level, unspecified, initial encounter; Y92.89 Other specified places as the place of occurrence of the external cause
CPT/HCPCS: 36415; 71045-TC; 72170-TC; 73501; 73502; 80048-TC; 80061-TC; 83735-TC; 84100-TC; 84443-TC; 85025-TC; 85610-TC; 85730-TC; 86850-TC; 87081-TC; 88305-TC; 93307-TC; 93971-TC; 97110-TC; 97112-TC; 97116-TC; 97530-TC; A4217; A6253; A6402; G0378; J0330; J0690; J1650; J2704; J3490; J7030; J7060

== ENCOUNTER 2018-08-06 14:15 | Inpatient (IN) | payer OTHER ==
[~2018-08-06] VITALS: Ht 167.6 cm; Wt 56.9 kg
[~2018-08-06 14:15] MED LIST: ACET325T53 PO; AMIO200T4 PO; ENOX40DI SQ; FINA5TAB11 PO; FOLI-65 PO; TAMS-12 PO
[2018-08-06] MEDS ORDERED: DOCU-141 PO (14:33)
[2018-08-06] MEDS ORDERED: ENOX40DI SQ (14:33)
[2018-08-06] MEDS ORDERED: MULT-659 PO (14:33)
--- NOTE | 2018-08-06 14:48 | NUR ---
VANNESSA FROM SNF, C/O R HIP PAIN, S/P R HIP ARTHROPLASTY 07/31/18. PATIENT IN BED, KEPT COMFORTABLE, NO DISTRESS NOTED. WILL CONT. TO MONITOR.
[2018-08-06] MEDS ORDERED: PROPOFOL 20 ML IV ONE (15:55)
[2018-08-06] MEDS ORDERED: PROPOFOL 200 MG/20 ML VIAL IV ONE (16:00)
--- NOTE | 2018-08-06 16:04 | NUR ---
IV LINE ESTABLISHED, WILL CALL NEXT OF KIN FOR CONSENT.
--- NOTE | 2018-08-06 16:08 | NUR ---
KUNAL NAJERA CALLED REGARDING CONSENT FOR PROCEDURE, HE WILL TRY TO GET A HOLD OF HIS CLEMENTE TO GIVE US CONSENT. DR FINNEGAN AWARE
--- NOTE | 2018-08-06 16:15 | NUR ---
RECEIVED CONSENT FROM KUNAL NAJERA VIA TELEPHONE.
--- NOTE | 2018-08-06 16:33 | NUR ---
CALLED MICKEY ARNOLD PAGED COLLEGE SCOUTING COORDINATOR BC
--- NOTE | 2018-08-06 16:53 | NUR ---
DR. FINNEGAN ATTEMPTED A CLOSED REDUCTION ON THE RIGHT HIP, UNSUCCESSFUL. ORTHO WILL BE PAGED. PATIENT TOLERATED PROCEDURE WELL.
--- NOTE | 2018-08-06 16:53 | NUR ---
ORTHO TRANSPORTATION PROGRAM DIRECTOR PAGED
--- NOTE | 2018-08-06 17:38 | NUR ---
[address] [place] [address]
[2018-08-06 17:51] LABS: BASOPHILS % (AUTO) 0.3 % (0.0-2.0); EOSINOPHILS % (AUTO) 0.5 % (0.0-6.0); HEMATOCRIT 36 % (39-51); LYMPHOCYTES # (AUTO) 0.5 /CMM (0.8-4.8); LYMPHOCYTES % (AUTO) 3.7 % (20.0-44.0); MEAN CORPUSCULAR HGB CONC 33 g/dl (31.0-36.0); MEAN CORPUSCULAR VOLUME 97 fL (80-96); MONOCYTES # (AUTO) 0.4 /CMM (0.1-1.30); MONOCYTES % (AUTO) 3.1 % (2.0-12.0); NEUTROPHILS # (AUTO) 11.7 /CMM (1.8-8.9); NEUTROPHILS % (AUTO) 92.4 % (43.0-81.0); PLATELET COUNT (AUTO) 362 /CMM (150-450); RED BLOOD CELL COUNT(AUTO) 3.72 MIL/uL (4.5-6.0); WHITE BLOOD COUNT (AUTO) 12.6 K/uL (4.3-11.0)
[2018-08-06 17:58] LABS: CALCIUM, SERUM 8.2 mg/dL (8.5-10.1); CARBON DIOXIDE 29 mmol/L (21-32); CHLORIDE 100 mmol/L (98-107); CREATININE 0.7 mg/dL (0.6-1.3); GLUCOSE 116 mg/dL (74-106); SODIUM SERUM 132 mmol/L (136-145); UREA NITROGEN, BLOOD 14 mg/dL (7-18)
--- NOTE | 2018-08-06 18:46 | NUR ---
REPORT GIVEN TO ROSY EM.
[2018-08-06] MEDS ORDERED: MAG HYDROX/AL HYDROX/SIMETH 30 ML UDC PO PRN (19:00)
[2018-08-06] MEDS ORDERED: HYDROCODONE/APAP 5/325MG 1 EACH TABLET PO PRN (19:00)
[2018-08-06] MEDS ORDERED: ZOLPIDEM TARTRATE 5 MG TABLET PO PRN (19:00)
[2018-08-06] MEDS ORDERED: MORPHINE SULFATE INJ 2 MG/ML DISP.SYRIN IV PRN (19:00)
[2018-08-06] MEDS ORDERED: MAGNESIUM HYDROXIDE 30 ML UDC PO PRN (19:00)
[2018-08-06] MEDS ORDERED: Z GUARD REMEDY 2 OZ OINT TP PRN (19:00)
[2018-08-06] MEDS ORDERED: ONDANSETRON HCL/PF 4 MG/2 ML VIAL IVP PRN (19:00)
--- NOTE | 2018-08-06 19:15 | NUR ---
PATIENT TRANSFERRED TO MED SURG FLOOR, PATIENT A/OX1, IN STABLE CONDITION. NO DISTRESS NOTED. VSS.
[2018-08-06 20:10] VITALS: BP 106/72
--- NOTE | 2018-08-06 20:45 | NUR ---
RN medsur notes Dr. Jovanny Ambrose (Orthopedic) called and informed that Pt will have surgery in the morning at 0700 am for Closed Reduction of Dislocated Right Hip Hemiarthroplasty and The Surgeon will be Dr. Santos. Informed and discussed to Pt and Pt's daughter about the surgery tomorrow morning. Pt and Pt's daughter verbalize understanding.
--- NOTE | 2018-08-06 21:00 | NUR ---
RN asia notes Informed consent has been signed by Pt's daughter Juany. Pt's daughter verbalize understanding.
[2018-08-06] MEDS: IV NS 0.9% 1,000 ML IV PRN (21:15)
[2018-08-06] MEDS: ACETAMINOPHEN 325 MG TABLET PO PRN ×2 (22:55→23:15)
--- NOTE | 2018-08-06 23:00 | NUR ---
RN medsurg notes Spoke with the charge nurse about Pt's fever. Didn't administered Tylenol until clarify with Dr. Lawler. Will continue to monitor.
--- NOTE | 2018-08-06 23:17 | NUR ---
RN medsur notes Spoke with Dr. Lawler about Pt's fever 101.8. Dr. Lawler said "It's okay to give Pt Tylenol 650 mg to reduce fever."
--- NOTE | 2018-08-06 23:25 | NUR ---
RN medsurg notes Administered Tylenol 650 mg as ordered to reduce fever. Fever 101.8. And applied ice pack to help reduce the fever. Will continue to monitor.
--- NOTE | 2018-08-07 00:21 | NUR ---
RN medsurg notes Fever reduced to 100.3 F. Applied ice pack and repositioned the PT for comfort. Pt tolerated activity well. Will continue to monitor. Pt's daughter Juany at the bed side.
--- NOTE | 2018-08-07 01:00 | NUR ---
RN gabrielshemar notes Pt's temperature is 99.2 degree F. Will continue to monitor.
[2018-08-07 02:21] LABS: BASOPHILS % (AUTO) 0.1 % (0.0-2.0); HEMATOCRIT 33 % (39-51); HEMOGLOBIN 11.2 g/dL (13.5-17.5); LYMPHOCYTES # (AUTO) 0.2 /CMM (0.8-4.8); LYMPHOCYTES % (AUTO) 1.4 % (20.0-44.0); MEAN CORPUSCULAR HGB CONC 35 g/dl (31.0-36.0); MEAN CORPUSCULAR VOLUME 95 fL (80-96); MONOCYTES # (AUTO) 0.3 /CMM (0.1-1.30); MONOCYTES % (AUTO) 1.9 % (2.0-12.0); NEUTROPHILS # (AUTO) 15.4 /CMM (1.8-8.9); NEUTROPHILS % (AUTO) 96.6 % (43.0-81.0); PLATELET COUNT (AUTO) 332 /CMM (150-450); RED BLOOD CELL COUNT(AUTO) 3.44 MIL/uL (4.5-6.0)
[2018-08-07 02:43] LABS: ALANINE AMINOTRANSFERASE 23 U/L (12-78); ALBUMIN 2.2 g/dL (3.4-5.0); ALKALINE PHOSPHATASE 145 U/L (46-116); ASPARTATE AMINOTRANSFERASE 25 U/L (15-37); BILIRUBIN,TOTAL 0.6 mg/dL (0.2-1.0); CARBON DIOXIDE 27 mmol/L (21-32); CHLORIDE 101 mmol/L (98-107); CREATININE 0.8 mg/dL (0.6-1.3); GLUCOSE 111 mg/dL (74-106); MAGNESIUM 1.8 mg/dL (1.8-2.4); PHOSPHORUS 2.9 mg/dL (2.5-4.9); SODIUM SERUM 136 mmol/L (136-145); TOTAL PROTEIN, SERUM 5.6 g/dL (6.4-8.2); UREA NITROGEN, BLOOD 17 mg/dL (7-18)
[2018-08-07 05:12] VITALS: BP 101/56
--- NOTE | 2018-08-07 06:00 | NUR ---
MANAV betancourt notes Pt is going for surgery. Informed consent has been signed.
--- NOTE | 2018-08-07 07:15 | NUR ---
RN medsurg closing notes Pt is alert and oriented X3. Respiration is clear and equal. VS is stable. Afebrile. IV sites is intact, patent and infusing well. Pt's daughter went with the PT. No s/s of distress noted. Pt is at the OR for close reduction of dislocated right hip hemiarthroplasty. Safety precautions is maintained. Will endorse to morning nurse for NEVIN.
[2018-08-07 08:00] VITALS: BP 98/60
[2018-08-07 08:17] VITALS: BP 98/60
--- NOTE | 2018-08-07 11:36 | NUR ---
WOUND CARE CONSULT: PT PRESENTS WITH RT HIP SURGICAL DRESSINGS WHICH ARE DRY AND INTACT, RT BUTTOCK OPEN BLISTER PROXIMAL TO SURGICAL SITE AND STAGE 2 ULCER TO SACRUM, PRESENT ON ADMISSION. RECOMMENDATIONS MADE FOR SKIN PROTECTIN AND WOUND CARE. DISCUSSED WITH NURSING STAFF. WILL SEE PRN. ISOFLEX LOW AIRLOSS BED TO BE PLACED. MD IN AGREEMENT WITH PLAN OF CARE. CURRENT BONG SCORE IS 12. Addendum: 08/07/18 at 1138 by ANNY VELASQUEZ WNDNU Amended: Links added.
[2018-08-07] MEDS: HYDROGEL DRESSING 90 GM TUBE TP SCH (12:00)
[2018-08-07] MEDS: HYDROGEL DRESSING 90 GM TUBE TP PRN (13:36)
[2018-08-07 16:00] VITALS: BP 103/66
--- NOTE | 2018-08-07 18:50 | NUR ---
RN medsurg opening notes Received Pt from morning nurse. Pt is alert and oriented X2. Pt only speaks Croatian language. Pt's daughter Juany at the bed side. Respiration is equal and unlabored. Pt denies any pain or any discomfort. VS is stable. Afebrile. IV sites on L FA is intact, patent and infusing well. Safety precautions is maintained. Bed at low position and call light is within reach. Will continue to monitor.
[2018-08-07 20:00] VITALS: BP 110/64
[2018-08-07] MEDS: IV NS 0.9% 1,000 ML IV PRN (21:44)
--- NOTE | 2018-08-08 07:03 | NUR ---
RN medsurg closing notes Pt is alert and oriented X2. Respiration is clear and equal. No SOB. No nausea or vomiting. VS is stable. Afebrile. IV sites on LFA #20g intact, patent and infusing well. No s/s of distress noted. Pt's daughter at the bed side. Safety precautions is maintained. Bed at low position and call light is within reach. Will endorse to morning nurse for NEVIN.
[2018-08-08 07:50] LABS: BASOPHILS % (AUTO) 0.1 % (0.0-2.0); EOSINOPHILS % (AUTO) 0.8 % (0.0-6.0); HEMATOCRIT 27 % (39-51); HEMOGLOBIN 9.6 g/dL (13.5-17.5); LYMPHOCYTES # (AUTO) 0.5 /CMM (0.8-4.8); LYMPHOCYTES % (AUTO) 4.6 % (20.0-44.0); MEAN CORPUSCULAR HGB CONC 35 g/dl (31.0-36.0); MEAN CORPUSCULAR VOLUME 94 fL (80-96); MONOCYTES # (AUTO) 0.4 /CMM (0.1-1.30); MONOCYTES % (AUTO) 3.8 % (2.0-12.0); NEUTROPHILS # (AUTO) 9.8 /CMM (1.8-8.9); NEUTROPHILS % (AUTO) 90.7 % (43.0-81.0); PLATELET COUNT (AUTO) 276 /CMM (150-450); RED BLOOD CELL COUNT(AUTO) 2.92 MIL/uL (4.5-6.0); WHITE BLOOD COUNT (AUTO) 10.8 K/uL (4.3-11.0)
--- NOTE | 2018-08-08 07:52 | NUR ---
RN MS OPENING NOTES Received patient on room air, no sob noted. Patient's vital sign stable, no s/s of pain noted from patient at this time. IVF on LFA intact and is flowing, no obstruction noted. Bed at the lowest setting, call light within reach.
[2018-08-08 07:57] LABS: CALCIUM, SERUM 7.9 mg/dL (8.5-10.1); CARBON DIOXIDE 25 mmol/L (21-32); CHLORIDE 103 mmol/L (98-107); CREATININE 0.6 mg/dL (0.6-1.3); GLUCOSE 91 mg/dL (74-106); MAGNESIUM 1.9 mg/dL (1.8-2.4); PHOSPHORUS 2.7 mg/dL (2.5-4.9); POTASSIUM 3.5 mmol/L (3.5-5.1); SODIUM SERUM 136 mmol/L (136-145); UREA NITROGEN, BLOOD 12 mg/dL (7-18)
[2018-08-08 07:59] VITALS: BP 115/63
[2018-08-08 08:00] VITALS: BP 113/69
[2018-08-08] MEDS: HYDROGEL DRESSING 90 GM TUBE TP SCH (08:38)
[2018-08-08 11:54] LABS: IRON, SERUM 10 ug/dl (50-175); TOTAL IRON BINDING CAPACITY 108 ug/dl (250-450)
[2018-08-08 12:44] LABS: FERRITIN 396 ng/mL (8-388)
[2018-08-08 15:52] VITALS: BP 120/64
[2018-08-08] MEDS: IV NS 0.9% 1,000 ML IV PRN (17:35)
--- NOTE | 2018-08-08 18:31 | NUR ---
RN MS CLOSING NOTES Patient remains on room air, no sob noted. Patient speaks East Timorese only. Remans on bryan catheter, flowing freely with no obstruction. Patient remains NPO except medications. Left forearm, 20 gauge, NS@75mL/hour. Patient has a surgery scheduled tomorrow at 1330, consents not signed yet, daughter wants to sign them tonight per daughter. Bed at the lowest setting, call light within reach.
--- NOTE | 2018-08-08 19:30 | NUR ---
ms business systems analyst initial notes received report from am nurse Jeniffer and seen pt in bed lying awake and alert watching TV at this time ,kiswahili speaking only, no signs of any distress noted. IVF NS at 75ml /hr infusing on his left forearm, patent and intact. re-oriented pt but noticed some confusion. kept him warm and comfortable at all times. on isolation precaution and implemented and observed. bed alarm set for patient safety and side rails up with bed in low and lock in position. will continue monitoring.
[2018-08-08 20:00] VITALS: BP 128/71
--- NOTE | 2018-08-09 | NUR ---
ms kevin notes pt sleeping comfortably in bed without any acute distress noted. NPO at this time for his surgery in am . kept him warm and comfortable at all times. IVF still infusing. will continue monitoring.
[2018-08-09] MEDS: IV NS 0.9% 1,000 ML IV PRN (05:39)
--- NOTE | 2018-08-09 07:19 | NUR ---
ms water operator closing notes pt remain sleeping comfortably in bed without any acute distress noted. respiration even and non-labored, skin warm and dry to touch, IVF NS at 75ml/hr still infusing on his left forearm. kept him warm and comfortable at all times. still on isolation precaution. bed alarm set for safety,. called valentine pt daughter and left messages to let her know that she needs to come back to sign the consent for pt procedure. will endorse to am nurse for continuity of care. place call light at reach.
[2018-08-09 08:00] VITALS: BP 128/71
--- NOTE | 2018-08-09 08:09 | NUR ---
patient recieved npo with iv fluids on for the scheduled procedure, with familyat bedside. consent signed
[2018-08-09] MEDS: HYDROGEL DRESSING 90 GM TUBE TP SCH (09:00)
[2018-08-09] MEDS: HYDROGEL DRESSING 90 GM TUBE TP PRN (10:11)
[2018-08-09 11:15] VITALS: BP 128/71
--- NOTE | 2018-08-09 11:52 | NUR ---
WOUND CARE CONSULT: PT SEEN FOR SWELLING AND REDNESS OF PENIS. SOME ODOR NOTED. RECOMMENDATIONS MADE FOR ANTIFUNGAL CREAM. DISCUSSED WITH N.P. AND NURSING STAFF. LARGE MEATUS NOTED WITH SKY IN PLACE. WILL SEE PRN.
--- NOTE | 2018-08-09 13:08 | NUR ---
wound care seen patient with the PLANNER INTERNS[employer]IP and seen the patient
--- NOTE | 2018-08-09 13:15 | NUR ---
pharmacy called to put an order for bactroban nares for mrsa of the nares,charge nurse informed and will order.npo and maintained for the ordered procedure
[2018-08-09] MEDS: SOD FERRIC GLUC 125 MG in IV NS 0.9% 100 ML IV SCH (14:18)
[2018-08-09 14:56] VITALS: BP 104/68
--- NOTE | 2018-08-09 14:58 | NUR ---
operating room personnel in and seen patient ,brought to the operating room via guerney.vital signs checked and recorded.consent signed,preoperative checklist completed,
[2018-08-09] MEDS ORDERED: MIDAZOLAM HCL 2 MG/2ML VIAL ONE (15:20)
[2018-08-09] MEDS ORDERED: FENTANYL PF 100MCG/2ML AMPUL ONE (15:20)
[2018-08-09] MEDS ORDERED: FAMOTIDINE/PF INJ 20 MG/2 ML VIAL IV ONE (15:20)
[2018-08-09] MEDS ORDERED: SUCCINYLCHOLINE CHLORIDE 20 MG/ML VIAL ONE (15:21)
--- NOTE | 2018-08-09 15:36 | NUR ---
patient currently in the operating room for scheduled procedure
[2018-08-09] MEDS ORDERED: BACITRACIN 50000 UNITS/VIAL ONE (15:44)
--- NOTE | 2018-08-09 16:25 | NUR ---
currently on the operating room for the scheduled procedure.
[2018-08-09] MEDS: CLOTRIMAZOLE 1% 15 GM TUBE TP SCH (17:00)
--- NOTE | 2018-08-09 18:03 | NUR ---
report taken from recovery room s/p ORIF right rip removal of old hardware and change with new one/ NO Physical therapy till ordered. resume orders
[2018-08-09 18:17] VITALS: BP 142/68
--- NOTE | 2018-08-09 18:18 | NUR ---
Dr Bettencourt paged as the patient has not eaten since midnight and still sleepy and unable to take in food. message left with the exchange,
--- NOTE | 2018-08-09 18:22 | NUR ---
Dr Bettencourt called back and with orders
[2018-08-09] MEDS ORDERED: IV D5/0.45 NACL 1,000 ML IV PRN (18:30)
--- NOTE | 2018-08-09 18:52 | NUR ---
patient is sleepy but arousable /vital signs monitored till stable
--- NOTE | 2018-08-09 19:08 | NUR ---
report given to the powder and primer canning leader rn to ask for urinalysis order as the urine is hazy looking
--- NOTE | 2018-08-09 19:10 | NUR ---
MS RN OPENING NOTES: RECEIVED PATIENT RESTING IN BED, SLIGHTLY LETHARGIC,EASILY AROUSABLE. NO COMPLAIN OF PAIN. V/S WNL. ON O2 AT 5L/MIN ON REGULAR MASK, SATING AT 96-98%. BED ALARM ON. BEDREST. NO BLEEDING NOTED. ABDUCTION PILLOW IN PLACE AT ALL TIMES. WITH ICE PACK ON THE RIGHT HIP INCISION. WITH SCD's ON BOTH LE ON. WITH RIGHT KNEE IMMOBILIZER ON. CALL LIGHT WITHIN REACH. BED IN LOW AND LOCKED POSITION.
[2018-08-09] MEDS: MUPIROCIN OINT 2% 22 GM TUBE SCH (19:43)
[2018-08-09 20:00] VITALS: BP 133/75
[2018-08-10] MEDS: ANCEF 1 GM/50 ML D5W IV SCH ×6 (01:42→14:57)
--- NOTE | 2018-08-10 03:11 | NUR ---
at around 2300. gia de la torre noticed that the patient's pad was wet with urine. checked bryan cath it's still intact with stat locked on it, and noticed there's only few urine output on the bryan bag. during the genital assessment,there's like a cut from the penis' opening, showed it to the daughter at the bedside. photo will be taken today.
[2018-08-10 05:01] VITALS: BP 117/69
[2018-08-10 06:21] LABS: BASOPHILS % (AUTO) 0.1 % (0.0-2.0); EOSINOPHILS % (AUTO) 0.5 % (0.0-6.0); HEMATOCRIT 30 % (39-51); HEMOGLOBIN 10.2 g/dL (13.5-17.5); LYMPHOCYTES # (AUTO) 0.3 /CMM (0.8-4.8); LYMPHOCYTES % (AUTO) 3.7 % (20.0-44.0); MEAN CORPUSCULAR HGB CONC 34 g/dl (31.0-36.0); MEAN CORPUSCULAR VOLUME 93 fL (80-96); MONOCYTES # (AUTO) 0.5 /CMM (0.1-1.30); MONOCYTES % (AUTO) 5.3 % (2.0-12.0); NEUTROPHILS # (AUTO) 8.4 /CMM (1.8-8.9); NEUTROPHILS % (AUTO) 90.4 % (43.0-81.0); PLATELET COUNT (AUTO) 319 /CMM (150-450); RED BLOOD CELL COUNT(AUTO) 3.23 MIL/uL (4.5-6.0); WHITE BLOOD COUNT (AUTO) 9.3 K/uL (4.3-11.0)
[2018-08-10 06:40] LABS: CALCIUM, SERUM 7.1 mg/dL (8.5-10.1); CARBON DIOXIDE 26 mmol/L (21-32); CHLORIDE 101 mmol/L (98-107); CREATININE 0.6 mg/dL (0.6-1.3); GLUCOSE 122 mg/dL (74-106); MAGNESIUM 1.7 mg/dL (1.8-2.4); PHOSPHORUS 3.1 mg/dL (2.5-4.9); POTASSIUM 3.2 mmol/L (3.5-5.1); SODIUM SERUM 134 mmol/L (136-145); UREA NITROGEN, BLOOD 9 mg/dL (7-18)
--- NOTE | 2018-08-10 07:38 | NUR ---
MS RN CLOSING NOTES: PATIENT IS RESTING COMFORTABLY IN BED. NO SOB. NO C/O PAIN. BEDREST STILL. WITH ABDUCTION PILLOW ON AND RIGHT KNEE IMMOBILIZER ON. DAUGHTER AT THE BEDSIDE. DAUGHTER STATED THAT SHE WANTS HER DAD TO BE D/C TO HOME NOT IN SNF, ADVISED HER TO TALK TO THE CM LATER, RN DAYSHIFT AWARE. TWO MORE DOSES OF ANCEF TO BE GIVEN TODAY, ENDORSED TO THE NEXT SHIFT RN. SKY CATH STILL LEAKING, ENDORSED TO THE NEXT SHIFT RN.
--- NOTE | 2018-08-10 07:50 | NUR ---
RN MS OPENING NOTES Received patient on a mask, 5L o2. No sob noted, patient has no s/s of pain at this time. Patient can be awakened but is very sleepy. Abduction pillow on and right knee mobilizer on as well. Daughter at bedside and does most of the translating for the patient. Perez cath is leaking and might need to be removed.
[2018-08-10 08:00] VITALS: BP 126/67
[2018-08-10] MEDS: POTASSIUM CHLORIDE 20 MEQ TAB.PRT.SR PO SCH ×3 (08:00→10:15)
[2018-08-10] MEDS: Magnesium 1GM/D5W 100ML PREMIX 100 ML IV SCH ×2 (08:45→10:41)
[2018-08-10] MEDS: HYDROGEL DRESSING 90 GM TUBE TP SCH (08:49)
[2018-08-10] MEDS: MUPIROCIN OINT 2% 22 GM TUBE SCH ×2 (08:50→21:38)
[2018-08-10] MEDS: CLOTRIMAZOLE 1% 15 GM TUBE TP SCH ×2 (08:50→17:00)
--- NOTE | 2018-08-10 14:33 | NUR ---
RN MS NOTES Removed patient's Perez catheter per Dr. Bettencourt's order. Urine sample sent to lab for urinalysis and culture.
[2018-08-10] MEDS: SOD FERRIC GLUC 125 MG in IV NS 0.9% 100 ML IV SCH (15:48)
[2018-08-10 16:00] VITALS: BP 100/58
[2018-08-10 16:12] LABS: APPEARANCE,URINE CLOUDY (CLEAR); BILIRUBIN,URINE NEGATIVE (NEGATIVE); BLOOD, URINE NEGATIVE Ery/uL (NEGATIVE); COLOR,URINE YELLOW (YELLOW); KETONES,URINE TRACE (NEGATIVE); LEUKOCYTE ESTERASE ,URINE 1+ (NEGATIVE); NITRITE, URINE NEGATIVE (NEGATIVE); PROTEIN,URINE 3+ mg/dl (NEGATIVE); UGLUCOSE NEGATIVE (NEGATIVE)
[2018-08-10 16:14] LABS: PH,URINE >9.0 (5.0-8.0)
[2018-08-10] MEDS: ENSURE ENLIVE 237 ML LIQUID (VANILLA) PO SCH (17:00)
[2018-08-10 17:01] LABS: BACTERIA,URINE Moderate /HPF (None Seen); RBC,URINE 0-2 /HPF (0-2)
[2018-08-10 17:02] LABS: SQUAMOUS EPITHELIAL CELL,UR Few /HPF (None Seen); TRIPLE PHOSPHATE CRYSTAL,UR Moderate /HPF (None Seen); URINE AMORPHOUS PHOSPHATES Moderate /HPF (None Seen)
--- NOTE | 2018-08-10 19:04 | NUR ---
RN MS CLOSING NOTES Patient remains on 4 Litter nasal cannula o2, no sob noted. Patient denies pain at this time. abductor pillow present. Patient is now on pureed diet, IV fluid was d/c. still awaiting for wound consult. Medications given. Bed at the lowest setting, call light within reach.
[2018-08-10 20:00] VITALS: BP 101/56
[2018-08-11 06:49] LABS: BASOPHILS % (AUTO) 0.2 % (0.0-2.0); EOSINOPHILS % (AUTO) 1.4 % (0.0-6.0); HEMATOCRIT 27 % (39-51); HEMOGLOBIN 9.4 g/dL (13.5-17.5); LYMPHOCYTES # (AUTO) 0.5 /CMM (0.8-4.8); MEAN CORPUSCULAR HGB CONC 35 g/dl (31.0-36.0); MEAN CORPUSCULAR VOLUME 93 fL (80-96); MONOCYTES # (AUTO) 0.7 /CMM (0.1-1.30); MONOCYTES % (AUTO) 8.9 % (2.0-12.0); NEUTROPHILS # (AUTO) 6.1 /CMM (1.8-8.9); NEUTROPHILS % (AUTO) 82.5 % (43.0-81.0); PLATELET COUNT (AUTO) 271 /CMM (150-450); RED BLOOD CELL COUNT(AUTO) 2.92 MIL/uL (4.5-6.0); WHITE BLOOD COUNT (AUTO) 7.3 K/uL (4.3-11.0)
[2018-08-11 06:59] LABS: CALCIUM, SERUM 7.7 mg/dL (8.5-10.1); CARBON DIOXIDE 27 mmol/L (21-32); CHLORIDE 102 mmol/L (98-107); CREATININE 0.6 mg/dL (0.6-1.3); GLUCOSE 100 mg/dL (74-106); MAGNESIUM 2.1 mg/dL (1.8-2.4); SODIUM SERUM 135 mmol/L (136-145); UREA NITROGEN, BLOOD 8 mg/dL (7-18)
--- NOTE | 2018-08-11 07:00 | NUR ---
pt slept well overnight, woke up due to pain and repositioned and get cleaned and complains with a lot of pain. noted no post op orders and no pre op meds resumed since 08/09, endorsed to next shift to reconcile meds today and clarify orders.
[2018-08-11 07:04] LABS: POTASSIUM 2.8 mmol/L (3.5-5.1)
--- NOTE | 2018-08-11 07:29 | NUR ---
RN MS OPENING NOTES Patient remains on 4L o2, nasal cannula. No sob noted. Patient remains a/o x1-2, no s/s of pain at this time. Abductor pillow present. Bed at the lowest setting, call light within reach.
[2018-08-11 08:00] VITALS: BP 118/66
[2018-08-11] MEDS: CLOTRIMAZOLE 1% 15 GM TUBE TP SCH ×2 (09:28→17:53)
[2018-08-11] MEDS: MUPIROCIN OINT 2% 22 GM TUBE SCH ×2 (09:29→21:34)
[2018-08-11] MEDS: HYDROGEL DRESSING 90 GM TUBE TP SCH (09:30)
[2018-08-11] MEDS: POTASSIUM CHLORIDE 20 MEQ TAB.PRT.SR PO SCH ×5 (09:31→13:09)
[2018-08-11] MEDS: ENSURE ENLIVE 237 ML LIQUID (VANILLA) PO SCH ×3 (09:34→17:53)
[2018-08-11] MEDS: SOD FERRIC GLUC 125 MG in IV NS 0.9% 100 ML IV SCH (14:22)
--- NOTE | 2018-08-11 15:01 | NUR ---
RN MS NOTES Rodrigo Bettencourt aware of the medication reconstitution. He was texted and he replied to the message.
--- NOTE | 2018-08-11 18:09 | NUR ---
RN MS CLOSING NOTES Patient remains on 3L o2 nasal cannula, no sob noted. patient shows no s/s of pain all shift. abductor pillow and immobilizer remains with patient. patient able to eat pureed diet and ensure, patient prefers pureed diet. Dr. Rodrigo Bettencourt made aware of the medication reconciliation that needs to be done. Patient's bed at the lowest setting, call light within reach. Will give report to NOC RN bedside for NEVIN.
[2018-08-11 20:00] VITALS: BP 117/79
[2018-08-11] MEDS ORDERED: ACETAMINOPHEN 325 MG TABLET PO PRN (20:30)
[2018-08-11] MEDS ORDERED: ENOXAPARIN SODIUM 40 MG/0.4 ML DISP.SYRIN SQ SCH (21:00)
[2018-08-11] MEDS: AMIODARONE HCL 200 MG TABLET PO SCH (21:34)
[2018-08-11] MEDS ORDERED: FINASTERIDE (5 MG) 5 MG TABLET PO SCH (22:00)
[2018-08-11] MEDS ORDERED: TAMSULOSIN 0.4 MG CAP.SR.24H PO SCH (22:00)
--- NOTE | 2018-08-12 06:00 | NUR ---
pt alert, confused, not sleeping last night talking to selk and daughter. pain only when repositioned, screams. fed by daughter and tolerated thin liquids, repositioned for comfort, abductor pillow in place with immobilizer at all times.vss,afebrile.
[2018-08-12 08:00] VITALS: BP 112/60
--- NOTE | 2018-08-12 08:00 | NUR ---
m/s command center analyst: initial assessment received pt in bed awake, alert to self only. no s/s of discomfort. dressing to right hip intact with no drainage/discharge noted. vss. will continue to monitor.
[2018-08-12] MEDS: AMIODARONE HCL 200 MG TABLET PO SCH (08:11)
[2018-08-12] MEDS: ENSURE ENLIVE 237 ML LIQUID (VANILLA) PO SCH ×2 (08:11→13:13)
[2018-08-12] MEDS: MUPIROCIN OINT 2% 22 GM TUBE SCH (08:12)
[2018-08-12 08:41] LABS: CALCIUM, SERUM 7.8 mg/dL (8.5-10.1); CARBON DIOXIDE 30 mmol/L (21-32); CHLORIDE 102 mmol/L (98-107); CREATININE 0.5 mg/dL (0.6-1.3); GLUCOSE 109 mg/dL (74-106); POTASSIUM 3.6 mmol/L (3.5-5.1); SODIUM SERUM 135 mmol/L (136-145); UREA NITROGEN, BLOOD 11 mg/dL (7-18)
[2018-08-12] MEDS ORDERED: MULTIVIT W/MINERALS 1 TAB TABLET PO SCH (09:00)
[2018-08-12] MEDS ORDERED: FOLIC ACID PO SCH (09:00)
[2018-08-12] MEDS ORDERED: MV FE OTHER MIN PO SCH (09:00)
[2018-08-12] MEDS ORDERED: [UNRECOGNIZED DRUG - OTHER] PO SCH (09:00)
[2018-08-12] MEDS ORDERED: DOCUSATE SODIUM 100 MG CAPSULE PO SCH (09:00)
--- NOTE | 2018-08-12 10:30 | NUR ---
m/s block press operator: notes am care rendered. all photos taken. wound consult ordered for right heel sdti/redness. photos taken. cn made aware. condom catheter provided due to painful when turning and incontinency. kept comfortable. will continue to monitor.
[2018-08-12] MEDS: CLOTRIMAZOLE 1% 15 GM TUBE TP SCH (11:39)
[2018-08-12] MEDS: HYDROGEL DRESSING 90 GM TUBE TP SCH (11:40)
--- NOTE | 2018-08-12 11:43 | NUR ---
WOUND CARE CONSULT: PT SEEN FOR RT HEEL REDNESS. BLANCHABLE REDNESS NOTED TO RT HEEL. DISCUSSED HEEL FLOATING WITH NURSING STAFF. WILL SEE PRN.
--- NOTE | 2018-08-12 12:30 | NUR ---
m/s monotype machinist: notes assisted with lunch with hob elevated. no distress noted.
--- NOTE | 2018-08-12 14:00 | NUR ---
m/s ethics officer: notes report given to sidney (rn supervisor sample preparation) from [facility] for continuity of care. eta for pickle solution maker at 1600 per case management.
[2018-08-12] MEDS ORDERED: SULF1TAB3 PO (14:31)
--- NOTE | 2018-08-12 14:45 | NUR ---
m/s scratch brusher: notes pt unable to sign discharge papers due to cognitive impairment. 2 licensed staff signed all d'c papers. valentine (daughter) has been notified by hieu (case management) and aware that pt is going to [facility] at 1600.
[2018-08-12] MEDS ORDERED: SULFAMETH/TRIMETH 800/160 MG 1 UDTAB TABLET PO SCH (15:00)
[2018-08-12] MEDS: SOD FERRIC GLUC 125 MG in IV NS 0.9% 100 ML IV SCH (15:26)
[2018-08-12 16:00] VITALS: BP 110/56
--- NOTE | 2018-08-12 16:32 | NUR ---
m/s international editorial producer: notes ferrlecit completed. iv flush and removed with tip intact. ambulance here and report given to one of the crew.
--- NOTE | 2018-08-12 16:36 | NUR ---
m/s pharmacy operations specialist: notes condom cath emptied with 250 ml of brad colored urine. no bowel movement at this time. vss.
--- NOTE | 2018-08-12 16:42 | NUR ---
m/s permit agent: discharged discharged to snf in stable condition with right leg immobilizer with abduction pillow, and condom cath in place via ambulance.
== END 2018-08-12 16:40 | DRG 301 ==
LOC: ER 14:23 → MED 18:30
PROVIDERS: ADMIT Hospitalist; ATTEND Hospitalist
PROC: 0SW90JZ Revision of Synthetic Substitute in Right Hip Joint, Open Approach (ICD-10-PCS; principal; 2018-08-09)
DX: T84.020A Dislocation of internal right hip prosthesis, initial encounter (principal); E43 Unspecified severe protein-calorie malnutrition; F03.90 Unspecified dementia, unspecified severity, without behavioral disturbance, psychotic disturbance, mood disturbance, and anxiety; I48.91 Unspecified atrial fibrillation; E88.09 Other disorders of plasma-protein metabolism, not elsewhere classified; D64.9 Anemia, unspecified; N39.0 Urinary tract infection, site not specified; I10 Essential (primary) hypertension; Y83.9 Surgical procedure, unspecified as the cause of abnormal reaction of the patient, or of later complication, without mention of misadventure at the time of the procedure; E83.42 Hypomagnesemia; E87.6 Hypokalemia; N40.1 Benign prostatic hyperplasia with lower urinary tract symptoms; E87.1 Hypo-osmolality and hyponatremia; Z68.20 Body mass index [BMI] 20.0-20.9, adult; Z86.73 Personal history of transient ischemic attack (TIA), and cerebral infarction without residual deficits; D72.829 Elevated white blood cell count, unspecified; B95.1 Streptococcus, group B, as the cause of diseases classified elsewhere; B96.4 Proteus (mirabilis) (morganii) as the cause of diseases classified elsewhere; Y79.2 Prosthetic and other implants, materials and accessory orthopedic devices associated with adverse incidents; Y92.129 Unspecified place in nursing home as the place of occurrence of the external cause
CPT/HCPCS: 36415; 71045-TC; 72170-TC; 73502; 80048-TC; 80053-TC; 80061-TC; 81000-TC; 82728-TC; 83540-TC; 83735-TC; 84100-TC; 85025-TC; 85730-TC; 86850-TC; 86921-TC; 87081-TC; 87086-TC; 87186-TC; A4217; A4349; A6248; A6402; G0378; G0500; J0330; J0690; J1650; J2250; J2405; J2704; J2765; J2916; J3010; J3475; J3490; J7030; J7060; L1830

== ENCOUNTER 2018-08-18 23:08 | Inpatient (IN) | payer OTHER ==
[~2018-08-18] VITALS: Ht 172.7 cm; Wt 59.0 kg
[~2018-08-18 23:08] MED LIST changes: +DOCU-141 PO; +MULT-659 PO; +SULF1TAB3 PO
--- NOTE | 2018-08-18 23:10 | NUR ---
PT GIOVANA FROM [facility] FOR R DISLOCATED HIP. PT STATES R HIP PAIN, PT AXO3. RESPIRATIONS EVEN AND UNLABORED. PT PUT ON THE SHIP SELF DEFENSE SYSTEM MK1 OPERATOR AND PULSE OX.
--- NOTE | 2018-08-19 | NUR ---
PT RESTING IN BED, NAD NOTED. WILL CONTINUE TO MONITOR.
[2018-08-19 00:50] LABS: BASOPHILS # (AUTO) 0.1 /CMM (0.0-0.2); BASOPHILS % (AUTO) 0.8 % (0.0-2.0); EOSINOPHILS % (AUTO) 2.5 % (0.0-6.0); HEMATOCRIT 34 % (39-51); HEMOGLOBIN 11.5 g/dL (13.5-17.5); LYMPHOCYTES # (AUTO) 0.7 /CMM (0.8-4.8); LYMPHOCYTES % (AUTO) 9.2 % (20.0-44.0); MEAN CORPUSCULAR HGB CONC 34 g/dl (31.0-36.0); MEAN CORPUSCULAR VOLUME 95 fL (80-96); MONOCYTES # (AUTO) 0.5 /CMM (0.1-1.30); MONOCYTES % (AUTO) 6.4 % (2.0-12.0); NEUTROPHILS # (AUTO) 5.9 /CMM (1.8-8.9); NEUTROPHILS % (AUTO) 81.1 % (43.0-81.0); PLATELET COUNT (AUTO) 351 /CMM (150-450); RED BLOOD CELL COUNT(AUTO) 3.61 MIL/uL (4.5-6.0); WHITE BLOOD COUNT (AUTO) 7.3 K/uL (4.3-11.0)
[2018-08-19 01:11] LABS: CALCIUM, SERUM 8.2 mg/dL (8.5-10.1); CARBON DIOXIDE 29 mmol/L (21-32); CHLORIDE 99 mmol/L (98-107); CREATININE 0.8 mg/dL (0.6-1.3); GLUCOSE 102 mg/dL (74-106); POTASSIUM 4.5 mmol/L (3.5-5.1); SODIUM SERUM 133 mmol/L (136-145); UREA NITROGEN, BLOOD 15 mg/dL (7-18)
--- NOTE | 2018-08-19 01:29 | NUR ---
REPORT GIVEN TO SARAH EM FOR NEVIN.
[2018-08-19] MEDS ORDERED: Z GUARD REMEDY 2 OZ OINT TP PRN (01:30)
[2018-08-19] MEDS ORDERED: ONDANSETRON HCL/PF 4 MG/2 ML VIAL IVP PRN (01:30)
[2018-08-19] MEDS ORDERED: MAGNESIUM HYDROXIDE 30 ML UDC PO PRN (01:30)
[2018-08-19] MEDS ORDERED: MAG HYDROX/AL HYDROX/SIMETH 30 ML UDC PO PRN (01:30)
[2018-08-19] MEDS ORDERED: HYDROCODONE/APAP 5/325MG 1 EACH TABLET PO PRN (01:30)
[2018-08-19] MEDS ORDERED: ACETAMINOPHEN 325 MG TABLET PO PRN ×2 (01:30)
--- NOTE | 2018-08-19 02:26 | NUR ---
RN MS ADMITTING NOTES RECEIVED PT FROM ER, ARRIVED VIA GURNEY. PT AWAKE ALERT ORIENTED X3, BREATHING EVEN AND UNLABORED ON ROOM AIR. NO SOB NOTED. IV ACCESS ON THE L FA20G PATENT AND FLUSHING. ABDUCTION WEDGE IN PLACE. NO COMPLAINT OF PAIN OR DISCOMFORT AT THIS TIME. BED IN LOWEST LOCKED POSITION,CALL LIGHT WITHIN REACH AT ALL TIMES, WILL CONTINUE TO MONITOR FREQUENTLY/
[2018-08-19] MEDS: IV NS 0.9% 1,000 ML IV PRN ×2 (03:15→17:29)
[2018-08-19 06:06] VITALS: BP 115/70
--- NOTE | 2018-08-19 06:13 | NUR ---
RN MS CLOSING NOTES PT REMAINS IN BED SLEEPING, EASILY AROUSED TO NAME CALL, DAUGHTER AT BEDSIDE BREATHING EVEN AND UNLABORED ON ROOM AIR. NO SOB NOTED. IV ACCESS ON THE L FA20G WITH NS @75ML/HR. ABDUCTION WEDGE IN PLACE. IN NO APPARENT PAIN OR DISCOMFORT AT THIS TIME. BED IN LOWEST LOCKED POSITION,CALL LIGHT WITHIN REACH AT ALL TIMES, WILL ENDORSE TO DAY NURSE FOR NEVIN.
[2018-08-19 06:37] LABS: BASOPHILS % (AUTO) 0.3 % (0.0-2.0); EOSINOPHILS % (AUTO) 2.6 % (0.0-6.0); HEMATOCRIT 33 % (39-51); HEMOGLOBIN 11.4 g/dL (13.5-17.5); LYMPHOCYTES # (AUTO) 0.7 /CMM (0.8-4.8); LYMPHOCYTES % (AUTO) 10.4 % (20.0-44.0); MEAN CORPUSCULAR HGB CONC 34 g/dl (31.0-36.0); MEAN CORPUSCULAR VOLUME 95 fL (80-96); MONOCYTES # (AUTO) 0.5 /CMM (0.1-1.30); MONOCYTES % (AUTO) 7.4 % (2.0-12.0); NEUTROPHILS # (AUTO) 5.3 /CMM (1.8-8.9); NEUTROPHILS % (AUTO) 79.3 % (43.0-81.0); PLATELET COUNT (AUTO) 322 /CMM (150-450); RED BLOOD CELL COUNT(AUTO) 3.53 MIL/uL (4.5-6.0); WHITE BLOOD COUNT (AUTO) 6.7 K/uL (4.3-11.0)
--- NOTE | 2018-08-19 07:20 | NUR ---
MS/RN OPENING NOTE THE PATIENT IS RECEIVED IN BED. AWAKE, ALERT AND ORIENTED X2. IN ROOM AIR. RESPIRATION REGULAR AND UNLABORED. DENIES PAIN. LFA G 20 AND NORMAL SALINE INFUSING AT 75ML/HR AND NO S/S INFILTRATION NOTED. ABDUCTOR PILLOW IN PLACE. BED LOW AND LOCKED. SIDE RAILS UP X3. CALL LIGHT WITHIN REACH. WILL CONTINUE TO MONITOR.
[2018-08-19 07:31] LABS: ALANINE AMINOTRANSFERASE 24 U/L (12-78); ALBUMIN 2.3 g/dL (3.4-5.0); ALKALINE PHOSPHATASE 242 U/L (46-116); ASPARTATE AMINOTRANSFERASE 24 U/L (15-37); BILIRUBIN,TOTAL 0.4 mg/dL (0.2-1.0); CALCIUM, SERUM 8.3 mg/dL (8.5-10.1); CARBON DIOXIDE 28 mmol/L (21-32); CHLORIDE 100 mmol/L (98-107); CREATININE 0.9 mg/dL (0.6-1.3); GLUCOSE 87 mg/dL (74-106); PHOSPHORUS 2.9 mg/dL (2.5-4.9); POTASSIUM 4.5 mmol/L (3.5-5.1); SODIUM SERUM 135 mmol/L (136-145); TOTAL PROTEIN, SERUM 6.2 g/dL (6.4-8.2); UREA NITROGEN, BLOOD 13 mg/dL (7-18)
[2018-08-19 07:33] LABS: CHOLESTEROL 114 mg/dL (<200); HDL CHOLESTEROL 47 mg/dL (40-60); LDL 59 mg/dL (0-99); THYROID STIMULATING HORMONE 2.043 uIU/mL (0.358-3.74); TRIGLYCERIDES 33 mg/dL (30-150)
[2018-08-19 08:00] VITALS: BP 100/54
[2018-08-19] MEDS: AMIODARONE HCL 200 MG TABLET PO SCH ×2 (08:54→17:00)
[2018-08-19] MEDS: DOCUSATE SODIUM 100 MG CAPSULE PO SCH ×2 (08:54→18:10)
[2018-08-19] MEDS: MULTIVIT W/MINERALS 1 TAB TABLET PO SCH (08:55)
--- NOTE | 2018-08-19 08:57 | NUR ---
MS/RN NOTE COLACE 100 MG, CORDARONE 200 MG AND THERAGRAM 1 TAB ARE NOT ADMINISTERED DUE TO PATIENT BEING NPO.
[2018-08-19] MEDS: FAMOTIDINE/PF INJ 20 MG/2 ML VIAL IV SCH ×2 (08:59→18:10)
[2018-08-19] MEDS ORDERED: MV FE OTHER MIN PO SCH (09:00)
[2018-08-19] MEDS ORDERED: FOLIC ACID PO SCH (09:00)
[2018-08-19] MEDS ORDERED: DOCUSATE SODIUM 100 MG CAPSULE PO SCH (09:00)
[2018-08-19] MEDS ORDERED: PANTOPRAZOLE 40 MG VIAL IV SCH (09:00)
[2018-08-19] MEDS ORDERED: [UNRECOGNIZED DRUG - OTHER] PO SCH (09:00)
[2018-08-19] MEDS: MORPHINE SULFATE INJ 2 MG/ML DISP.SYRIN IV PRN (09:44)
[2018-08-19 16:00] VITALS: BP 106/61
--- NOTE | 2018-08-19 16:14 | NUR ---
MS/RN NOTE RECEIVED NEW ORDER FROM DR ROBIN FOR CARDIAC PUREED DIET. NOTED AND CARRIED OUT.
--- NOTE | 2018-08-19 18:30 | NUR ---
MS/RN NOTE THE PATIENT ALERT AND ORIENTED X2. IN ROOM AIR AND SATURATION AT 98%. DENIES SOB. RESPIRATION REGULAR AND UNLABORED. DENIES PAIN. ABDUCTOR PILLOW IN PLACE. PRECAUTIONS TAKEN. LFA G 20 PATENT AND NORMAL SALINE INFUSING AT 75ML/HR AND NO S/S INFILTRATION NOTED. BED LOW AND LOCKED. SIDE RAILS UP X3. CALL LIGHT WITHIN REACH. WILL ENDORSE TO FORESTRY INSTRUCTOR.
--- NOTE | 2018-08-19 20:03 | NUR ---
RN MS OPENING NOTES RECEIVED PT FROM. PT AWAKE ALERT ORIENTED X3, DAUGHTER AT BEDSIDE. BREATHING EVEN AND UNLABORED ON ROOM AIR. NO SOB NOTED. IV ACCESS ON THE L FA20G PATENT AND FLUSHING. ABDUCTION WEDGE IN PLACE. NO COMPLAINT OF PAIN OR DISCOMFORT AT THIS TIME. BED IN LOWEST LOCKED POSITION,CALL LIGHT WITHIN REACH AT ALL TIMES, WILL CONTINUE TO MONITOR FREQUENTLY
[2018-08-19] MEDS: FINASTERIDE (5 MG) 5 MG TABLET PO SCH (21:52)
[2018-08-19] MEDS: TAMSULOSIN 0.4 MG CAP.SR.24H PO SCH (21:52)
[2018-08-20] MEDS: IV NS 0.9% 1,000 ML IV PRN ×2 (05:54→18:45)
--- NOTE | 2018-08-20 06:09 | NUR ---
RN MS CLOSING NOTES PT REMAINS IN BED AWAKE ALERT, DISORIENTED AND CONFUSED TO PLACE AND TIME, BREATHING EVEN AND UNLABORED ON ROOM AIR. NO SOB NOTED. IV ACCESS ON THE L FA20G WITH NS @75ML/HR. ABDUCTION WEDGE IN PLACE. IN NO APPARENT PAIN OR DISCOMFORT AT THIS TIME. BED IN LOWEST LOCKED POSITION,CALL LIGHT WITHIN REACH AT ALL TIMES, WILL ENDORSE TO DAY NURSE FOR NEVIN.
--- NOTE | 2018-08-20 07:25 | NUR ---
MS/RN OPENING NOTE THE PATIENT IS IN BED. ALERT AND ORIENTED X3. IN ROOM AIR AND DENIES SOB. RESPIRATION REGULAR AND UNLABORED. DENIES PAIN. LFA G 20 AND NORMAL SALINE INFUSING AT 75ML/HR AND NO S/S INFILTRATION NOTED. ABDUCTOR PILLOW IN PLACE. BED LOW AND LOCKED. SIDE RAILS UP X3. CALL LIGHT WITHIN REACH. WILL CONTINUE TO MONITOR.
[2018-08-20 08:00] VITALS: BP 133/72
[2018-08-20] MEDS: DOCUSATE SODIUM 100 MG CAPSULE PO SCH ×2 (08:40→16:52)
[2018-08-20] MEDS: AMIODARONE HCL 200 MG TABLET PO SCH ×2 (08:40→16:53)
[2018-08-20] MEDS: MULTIVIT W/MINERALS 1 TAB TABLET PO SCH (08:40)
[2018-08-20] MEDS: FAMOTIDINE/PF INJ 20 MG/2 ML VIAL IV SCH ×2 (08:40→16:52)
[2018-08-20 16:00] VITALS: BP 120/62
[2018-08-20] MEDS: ENSURE ENLIVE 237 ML LIQUID (VANILLA) PO SCH (17:00)
--- NOTE | 2018-08-20 18:33 | NUR ---
MS/RN CLOSING NOTE THE PATIENT ALERT AND ORIENTED X3. IN ROOM AIR AND SATURATION IS AT 97%. DENIES SOB. RESPIRATION REGULAR AND UNLABORED. DENIES PAIN. THE PATIENT IN NO APPARENT DISTRESS. LFA G 20 AND NORMAL SALINE INFUSING AT 75ML/HR AND NO S/S INFILTRATION NOTED. ABDUCTOR PILLOW IN PLACE. HIP PRECAUTIONS TAKEN AT ALL TIMES. BED LOW AND LOCKED. SIDE RAILS UP X3. CALL LIGHT WITHIN REACH. WILL ENDORSE TO CRAB BUTCHER.
--- NOTE | 2018-08-20 19:35 | NUR ---
RN MS OPENING NOTES RECEIVED PT FROM. PT AWAKE ALERT ORIENTED X3, DAUGHTER AT BEDSIDE. BREATHING EVEN AND UNLABORED ON ROOM AIR. NO SOB NOTED. IV ACCESS ON THE L FA20G WITH NS @75ML/HR. ABDUCTION WEDGE IN PLACE. NO COMPLAINT OF PAIN OR DISCOMFORT AT THIS TIME. BED IN LOWEST LOCKED POSITION,CALL LIGHT WITHIN REACH AT ALL TIMES, WILL CONTINUE TO MONITOR FREQUENTLY
[2018-08-20 20:00] VITALS: BP 122/72
[2018-08-20] MEDS: MORPHINE SULFATE INJ 2 MG/ML DISP.SYRIN IV PRN (20:28)
[2018-08-20] MEDS: FINASTERIDE (5 MG) 5 MG TABLET PO SCH (21:08)
[2018-08-20] MEDS: TAMSULOSIN 0.4 MG CAP.SR.24H PO SCH (21:08)
[2018-08-20 21:46] VITALS: BP 122/72
--- NOTE | 2018-08-21 06:06 | NUR ---
RN MS CLOSING NOTES PT REMAINS IN BED SLEEPING, BREATHING EVEN AND UNLABORED ON ROOM AIR. NO SOB NOTED. IV ACCESS ON THE L FA20G WITH NS @75ML/HR. ABDUCTION WEDGE IN PLACE. IN NO APPARENT PAIN OR DISCOMFORT AT THIS TIME. BED IN LOWEST LOCKED POSITION,CALL LIGHT WITHIN REACH AT ALL TIMES, WILL ENDORSE TO DAY NURSE FOR NEVIN.
[2018-08-21 06:23] LABS: BASOPHILS % (AUTO) 0.1 % (0.0-2.0); EOSINOPHILS % (AUTO) 2.9 % (0.0-6.0); HEMATOCRIT 30 % (39-51); HEMOGLOBIN 10.2 g/dL (13.5-17.5); LYMPHOCYTES # (AUTO) 0.6 /CMM (0.8-4.8); LYMPHOCYTES % (AUTO) 10.2 % (20.0-44.0); MEAN CORPUSCULAR HGB CONC 34 g/dl (31.0-36.0); MEAN CORPUSCULAR VOLUME 95 fL (80-96); MONOCYTES # (AUTO) 0.4 /CMM (0.1-1.30); MONOCYTES % (AUTO) 6.7 % (2.0-12.0); NEUTROPHILS # (AUTO) 4.8 /CMM (1.8-8.9); NEUTROPHILS % (AUTO) 80.1 % (43.0-81.0); PLATELET COUNT (AUTO) 284 /CMM (150-450); RED BLOOD CELL COUNT(AUTO) 3.17 MIL/uL (4.5-6.0)
[2018-08-21 06:35] LABS: CALCIUM, SERUM 7.6 mg/dL (8.5-10.1); CARBON DIOXIDE 25 mmol/L (21-32); CHLORIDE 104 mmol/L (98-107); CREATININE 0.7 mg/dL (0.6-1.3); GLUCOSE 101 mg/dL (74-106); MAGNESIUM 1.9 mg/dL (1.8-2.4); PHOSPHORUS 2.9 mg/dL (2.5-4.9); SODIUM SERUM 138 mmol/L (136-145); UREA NITROGEN, BLOOD 12 mg/dL (7-18)
[2018-08-21] MEDS: IV NS 0.9% 1,000 ML IV PRN ×2 (06:43→17:11)
--- NOTE | 2018-08-21 07:20 | NUR ---
MS RN OPENING NOTES RECEIVED PT IN BED, ALERT AND ORIENTED X2-3, PRIMARILY MALDIVIAN SPEAKING. BREATHING IS EVEN AND UNLABORED ON ROOM AIR, NO ACUTE DISTRESS NOTED AT THIS TIME. NEUROVASCULAR STATUS INTACT. LEFT FA #20G IS INFUSING NS @ 75ML/HR WITHOUT REDNESS OR SWELLING. DAUGHTER AT THE BEDSIDE. ALL NEEDS ATTENDED TO. ASPIRATION PRECAUTIONS MAINTAINED. BED IS LOCKED AND IN LOWEST POSITION, SIDE RAILS UP X2, BED ALARM ON, CALL LIGHT AND POSSESSIONS WITHIN REACH.
[2018-08-21 08:00] VITALS: BP 114/67
[2018-08-21] MEDS: ENSURE ENLIVE 237 ML LIQUID (VANILLA) PO SCH ×3 (09:00→17:11)
[2018-08-21] MEDS: AMIODARONE HCL 200 MG TABLET PO SCH ×2 (09:00→17:00)
[2018-08-21] MEDS: DOCUSATE SODIUM 100 MG CAPSULE PO SCH ×2 (09:23→17:11)
[2018-08-21] MEDS: MULTIVIT W/MINERALS 1 TAB TABLET PO SCH (09:23)
[2018-08-21] MEDS: FAMOTIDINE/PF INJ 20 MG/2 ML VIAL IV SCH ×2 (09:23→17:11)
--- NOTE | 2018-08-21 12:02 | NUR ---
MS RN NOTE INFORMED DIANA CARDONA REGARDING PT DAUGHTER REQUEST TO SPEAK WITH SOMEONE. PER DULCE SHE WILL SEE THE FAMILY SHORTLY.
[2018-08-21 16:00] VITALS: BP 95/60
--- NOTE | 2018-08-21 18:35 | NUR ---
MS RN CLOSING NOTE PT IN BED, ALERT AND ORIENTED X2-3, PRIMARILY YI SPEAKING. BREATHING IS EVEN AND UNLABORED ON ROOM AIR, NO ACUTE DISTRESS NOTED AT THIS TIME. NEUROVASCULAR STATUS INTACT. LEFT FA #20G IS INFUSING NS @ 75ML/HR WITHOUT REDNESS OR SWELLING. DAUGHTER AT THE BEDSIDE. ADLS PROVIDED AND PT ASSISTED TO TURN AND REPOSITION Q2H FOR THE DURATION OF THE SHIFT. PT STILL PENDING TRANSFER TO HIGHER LEVEL OF CARE FOR SYSTEMS ADMINISTRATOR. ALL NEEDS ATTENDED TO. ASPIRATION PRECAUTIONS MAINTAINED. BED IS LOCKED AND IN LOWEST POSITION, SIDE RAILS UP X2, BED ALARM ON, CALL LIGHT AND POSSESSIONS WITHIN REACH. WILL ENDORSE TO BURRITO MAKER NURSE FOR CONTINUITY OF CARE.
--- NOTE | 2018-08-21 19:45 | NUR ---
MS RN NOTE: PATIENT RESTING IN BED, NO ACUTE DISTRESS NOTED, DAUGHTER AT BEDSIDE. BREATHING EVEN AND UNLABORED, NO SOB NOTED. IV TO LFA IN PLACE, INFUSING NS AT 75ML/HR. CONDOM CATH IN PLACE, DRAINING CLEAR YELLOW URINE. BED LOCKED AND IN LOWEST POSITION, CALL LIGHT IN REACH. WILL CONTINUE TO MONITOR.
[2018-08-21 20:00] VITALS: BP 108/56
[2018-08-21] MEDS: TAMSULOSIN 0.4 MG CAP.SR.24H PO SCH (21:28)
[2018-08-21] MEDS: FINASTERIDE (5 MG) 5 MG TABLET PO SCH (21:28)
--- NOTE | 2018-08-22 03:15 | NUR ---
MS RN NOTE: PATIENT RESTING IN BED, NO ACUTE DISTRESS NOTED, DAUGHTER AT BEDSIDE. BREATHING EVEN AND UNLABORED, NO SOB NOTED. BED LOCKED AND IN LOWEST POSITION, CALL LIGHT IN REACH. WILL CONTINUE TO MONITOR.
[2018-08-22] MEDS: IV NS 0.9% 1,000 ML IV PRN ×2 (05:13→21:44)
--- NOTE | 2018-08-22 06:20 | NUR ---
MS RN NOTE: PATIENT RESTING IN BED, NO ACUTE DISTRESS NOTED, DAUGHTER AT BEDSIDE. BREATHING EVEN AND UNLABORED, NO SOB NOTED. IV TO LAC IN PLACE, INFUSING NS AT 75ML/HR. BED LOCKED AND IN LOWEST POSITION, CALL LIGHT IN REACH. WILL ENDORSE TO DAY NURSE TO CONTINUE WITH PLAN OF CARE.
[2018-08-22 06:27] LABS: BASOPHILS % (AUTO) 0.2 % (0.0-2.0); EOSINOPHILS % (AUTO) 2.4 % (0.0-6.0); HEMATOCRIT 30 % (39-51); HEMOGLOBIN 10.3 g/dL (13.5-17.5); LYMPHOCYTES # (AUTO) 0.6 /CMM (0.8-4.8); LYMPHOCYTES % (AUTO) 10.1 % (20.0-44.0); MEAN CORPUSCULAR HGB CONC 34 g/dl (31.0-36.0); MEAN CORPUSCULAR VOLUME 95 fL (80-96); MONOCYTES # (AUTO) 0.5 /CMM (0.1-1.30); MONOCYTES % (AUTO) 7.8 % (2.0-12.0); NEUTROPHILS # (AUTO) 4.8 /CMM (1.8-8.9); NEUTROPHILS % (AUTO) 79.5 % (43.0-81.0); PLATELET COUNT (AUTO) 259 /CMM (150-450); RED BLOOD CELL COUNT(AUTO) 3.15 MIL/uL (4.5-6.0)
[2018-08-22 06:37] LABS: CALCIUM, SERUM 7.9 mg/dL (8.5-10.1); CARBON DIOXIDE 27 mmol/L (21-32); CHLORIDE 102 mmol/L (98-107); CREATININE 0.7 mg/dL (0.6-1.3); GLUCOSE 112 mg/dL (74-106); MAGNESIUM 1.9 mg/dL (1.8-2.4); PHOSPHORUS 2.4 mg/dL (2.5-4.9); POTASSIUM 3.7 mmol/L (3.5-5.1); SODIUM SERUM 137 mmol/L (136-145); UREA NITROGEN, BLOOD 14 mg/dL (7-18)
--- NOTE | 2018-08-22 07:51 | NUR ---
RN OPENING NOTES PT AWAKE AND RESTING IN BED. PT PRIMARILY MALIAN SPEAKER. NO APPARENT S/S OF PAIN, DISTRESS OR SOB AT THIS TIME. PT HAS CONDOM CATHETER INTACT AND DRAINING WELL. PT HAS ABDUCTOR PILLOW IN PLACE. PT HAS A LEFT FOREARM #20 INTACT AND PATENT RUNNING NS @75ML/HR. SAFETY PRECAUTIONS IN PLACE, BED IN LOWEST LOCKED POSITION, X2 SIDE RAILS UP AND CALL LIGHT WITHIN REACH. WILL CONTINUE TO MONITOR.
[2018-08-22 08:00] VITALS: BP 126/72
[2018-08-22] MEDS ORDERED: NEUTRA PHOS 1 POWD.PACKET PO ONE (08:00)
[2018-08-22] MEDS: AMIODARONE HCL 200 MG TABLET PO SCH ×2 (08:50→17:42)
[2018-08-22] MEDS: MULTIVIT W/MINERALS 1 TAB TABLET PO SCH (08:50)
[2018-08-22] MEDS: DOCUSATE SODIUM 100 MG CAPSULE PO SCH ×2 (08:50→17:41)
[2018-08-22] MEDS: FAMOTIDINE/PF INJ 20 MG/2 ML VIAL IV SCH ×2 (08:50→17:42)
[2018-08-22] MEDS: ENSURE ENLIVE 237 ML LIQUID (VANILLA) PO SCH ×3 (08:51→17:41)
--- NOTE | 2018-08-22 19:28 | NUR ---
RN CLOSING NOTES PT AWAKE AND RESTING IN BED. PT PRIMARILY MONTENEGRIN SPEAKER. DAUGHTER AT BEDSIDE. NO APPARENT S/S OF PAIN, DISTRESS OR SOB AT THIS TIME. PT HAS CONDOM CATHETER INTACT AND DRAINING WELL. PT HAS ABDUCTOR PILLOW IN PLACE. PT HAS A RIGHT FOREARM #22 INTACT AND PATENT RUNNING NS @75ML/HR. SAFETY PRECAUTIONS IN PLACE, BED IN LOWEST LOCKED POSITION, X2 SIDE RAILS UP AND CALL LIGHT WITHIN REACH. WILL ENDORSE TO WHEEL ALIGNMENT TECHNICIAN NURSE FOR CONTINUITY OF CARE.
--- NOTE | 2018-08-22 19:43 | NUR ---
MS RN RECEIVE PT IN BED AWAKE A/O X2 SERBIAN SPEAKER, STABLE, NO S/S OF DISTRESS, SAFETY MEASURES IN PLACE. WILL CONTINUE TO MONITOR
[2018-08-22 20:00] VITALS: BP 134/73
[2018-08-22] MEDS: FINASTERIDE (5 MG) 5 MG TABLET PO SCH (21:44)
[2018-08-22] MEDS: TAMSULOSIN 0.4 MG CAP.SR.24H PO SCH (21:44)
--- NOTE | 2018-08-23 06:04 | NUR ---
MS RN SLEPT WELL THROUGHOUT THE NIGHT. DAUGHTER AT BEDSIDE. NO SIGNIFICANT CHANGES THROUGHOUT THE SHIFT. NO S/S OF DISTRESS. RESPIRATIONS EVEN AND UNLABORED. KEPT CLEAN AND DRY AND COMFORTABLE. NEEDS ATTENDED AND ANTICIPATED, AM CARE RENDERED, SENSATION OF THE BOTH LEG INTACT. NWB RLE, ABDUCTOR PILLOW IN PLACE AT ALL TIMES. OFFLOAD HEELS AND ELBOWS. ASSISTED REPOSITION EVERY 2 HOURS. SAFETY MEASURES AT ALL TIMES. ENDORSE TO THE NEXT SHIFT.
--- NOTE | 2018-08-23 07:50 | NUR ---
RN OPENING OPENING PT RESTING IN BED. DAUGHTER AT BEDSIDE. PT PRIMARILY UPPER SORBIAN SPEAKER. NO APPARENT S/S OF PAIN, DISTRESS OR SOB AT THIS TIME. PT HAS RIGHT FOREARM #22 IV RUNNING NS @75ML/HR. PT TOLERATING WELL. PT HAS A CONDOM CATHETER INTACT AND DRAINING WELL. AWAITING TRANSFER FOR HIGHER LEVEL OF CARE. SAFETY PRECAUTIONS IN PLACE, BED IN LOWEST LOCKED POSITION, X2 SIDE RAILS UP AND CALL LIGHT WITHIN REACH. WILL CONTINUE TO MONITOR.
[2018-08-23 08:00] VITALS: BP 118/66
[2018-08-23] MEDS: ENSURE ENLIVE 237 ML LIQUID (VANILLA) PO SCH ×3 (08:48→17:32)
[2018-08-23] MEDS: FAMOTIDINE/PF INJ 20 MG/2 ML VIAL IV SCH ×2 (08:49→17:32)
[2018-08-23] MEDS: AMIODARONE HCL 200 MG TABLET PO SCH ×2 (08:50→17:00)
[2018-08-23] MEDS: MULTIVIT W/MINERALS 1 TAB TABLET PO SCH (08:50)
[2018-08-23] MEDS: DOCUSATE SODIUM 100 MG CAPSULE PO SCH ×2 (08:51→17:32)
[2018-08-23] MEDS: IV NS 0.9% 1,000 ML IV PRN (13:51)
[2018-08-23 16:00] VITALS: BP 99/52
[2018-08-23 17:00] VITALS: BP 99/52
--- NOTE | 2018-08-23 18:42 | NUR ---
HARVESTING MANAGER NOTES PT STABLE AT DISCHARGE. PATIENT WILL BE DISCHARGED HOME WITH HOME AND WILL FOLLOW UP WITH [facility]. ALL PAPERWORK TAKEN WITH PATIENT. IV AND ID BAND REMOVED. PT LEFT UNIT VIA PRIVATE TRANSPORT. PICTURES TAKEN AT DISCHARGE. Addendum: 08/23/18 at 191 by BHUMIKA HUITRON RN PT LEFT UNIT AT 1900
== END 2018-08-23 19:00 | disposition home health service (06) | DRG 349 ==
LOC: ER 23:13 → MEDSG2 08-19 00:45
PROVIDERS: ADMIT Internal Medicine; ATTEND Hospitalist
DX: T84.020A Dislocation of internal right hip prosthesis, initial encounter (principal); E43 Unspecified severe protein-calorie malnutrition; F03.90 Unspecified dementia, unspecified severity, without behavioral disturbance, psychotic disturbance, mood disturbance, and anxiety; I48.91 Unspecified atrial fibrillation; E88.09 Other disorders of plasma-protein metabolism, not elsewhere classified; I10 Essential (primary) hypertension; E83.39 Other disorders of phosphorus metabolism; E87.1 Hypo-osmolality and hyponatremia; Z86.73 Personal history of transient ischemic attack (TIA), and cerebral infarction without residual deficits; Z68.1 Body mass index [BMI] 19.9 or less, adult; D50.9 Iron deficiency anemia, unspecified; Y83.8 Other surgical procedures as the cause of abnormal reaction of the patient, or of later complication, without mention of misadventure at the time of the procedure; Y92.129 Unspecified place in nursing home as the place of occurrence of the external cause
CPT/HCPCS: 36415; 71045-TC; 73502; 80048-TC; 80053-TC; 80061-TC; 83735-TC; 84100-TC; 84443-TC; 85025-TC; 85730-TC; 86850-TC; 87081-TC; A4349; G0378; J2270; J3490; J7030